=== PATIENT | female | born 1970 | race Caucasian/White ===

== ENCOUNTER 2016-07-27 21:13 | Inpatient (IN) | payer OTHER ==
[~2016-07-27] VITALS: Ht 165.1 cm; Wt 105.2 kg
[~2016-07-27 21:13] MED LIST: ALBUTEROL2.5 MG/0.5 INH; ANAPROX DS550 MG PO; ANTIVERT/2525 MG PO; AVELOX400 MG PO; BACTRIM DS 8001 TA1 PO; BRIN10TA PO; BUSPAR5 MG PO; CALCIUM CARBON500 M1 PO; CELEBREX200 MG; CELEXA40 MG; CELEXA40 MG PO; CEPHALEXIN500 M1 PO; CIPRO500 MG PO; CIPROFLOXACIN500 MG PO; CLARITIN10 MG PO; CYCLOBENZAPRINE10 MG PO; CYMBALTA60 MG PO; DONNATAL1 TAB PO; DOXYCYCLINE100 M3 PO; FETZIMA PO; FLAGYL500 MG; FLAGYL500 MG PO; FLEXERIL5 MG PO; FLONASE 0.05% 121 EA NAS; Flagyl500 M1 PO; GABAPENTIN TAB600 MG PO; HYDROCODONE BIT1 T11 PO; HYDROXYZINE50 MG PO; KLONOPIN2 MG PO; LEVAQUIN500 M2 PO; LEVAQUIN750 M1 PO; LEVAQUIN750 MG PO; LEVOMILNACIPRAN PO; LOMOTIL 0.025 M1 TA1 PO; Lioresal PO; MEDROL DOSEPAK4 MG PO; MOTRIN800 MG PO; NORCO 5-325 TA1 EACH PO; OMNICEF300 MG PO; Orphenadrine C100 MG PO; PEPCID20 MG PO; PERCOCET 325 MG1 TA2 PO; PHARMASSURE FO0.4 MG PO; PHENAZOPYRIDIN100 M1 PO; PHENERGAN W/ DE30 ML PO; PREDNICOT10 MG PO; PREDNISONE10 MG PO; PRISTIQ50 MG PO; PROAIR HFA0.09 MG/AC INH; PROTONIX40 MG PO; Phenergan25 MG PO; RISPERDAL0.25 MG PO; ROBITUSSIN AC 110 ML PO; ROBITUSSIN DM 105 ML PO; SEROQUEL300 MG PO; SOMA350 MG PO; TRAMADOL HCL50 MG PO; TYLENOL WITH CO1 TA1 PO; VALIUM10 MG; VENTOLIN H0.09 MG/AC INH; VICODIN 5/500 505 MG PO; VICODIN ES 7501 TA1 PO; VISTARIL25 M2 PO; VOLTAREN50 M1 PO; XANAX XR2 MG; XANAX0.5 MG PO; ZITHROMAX Z PA250 MG PO; ZITHROMAX250 MG PO; ZITHROMAX500 MG PO; ZOFRAN ODT4 MG SL; ZOFRAN ODT8 MG PO; ZOFRAN4 MG PO; ZYRTEC10 MG PO; Zofran4 MG PO; [UNRECOGNIZED DRUG - OTHER] PO; [UNRECOGNIZED DRUG - OTHER] PO
[2016-07-27 21:24] VITALS: BP 118/61
[2016-07-27 22:00] LABS: BASO # 0.1 10*3/uL (0.0-0.1); BASO % 0.3 % (0.0-1.0); EOS # 0.3 10*3/uL (0.0-0.4); HEMATOCRIT 44.7 % (37.0-47.0); HEMOGLOBIN 15.2 g/dl (12.0-16.0); IG # 0.1 10*3/uL (0.0-0.1); LYMPH # 4.2 10*3/uL (1.3-4.4); LYMPH % 25.3 % (27.0-41.0); MEAN CELL VOLUME 86.6 fl (81.0-99.0); MEAN CORPUSCULAR HGB 29.5 pg (27.0-31.0); MEAN PLATELET VOLUME 9.6 fl (9.6-12.3); MONO # 1.1 10*3/uL (0.1-1.0); MONO % 6.4 % (3.0-9.0); NEUT # 10.9 10*3/uL (2.3-7.9); NEUT % 65.6 % (47.0-73.0); PLATELET COUNT AUTOMATED 342 10*3/uL (130-400); RED BLOOD COUNT 5.16 10*6/uL (4.10-5.10); RED CELL DISTRI WIDTH 14.6 % (0-14.5); WHITE BLOOD COUNT 16.7 10*3/uL (4.8-10.8)
[2016-07-27 22:10] LABS: PROTHROMBIN TIME 10.2 SECONDS (9.0-12.4)
[2016-07-27 22:17] LABS: C-REACTIVE PROTEIN 1.4 MG/DL (0-0.3); CKMB 1.1 ng/ml (0.5-3.6); MAGNESIUM 2.4 mg/dL (1.5-2.1)
[2016-07-27 22:18] LABS: ALBUMIN 3.3 gm/dl (3.1-4.5); ALKALINE PHOSPHATASE 129 U/L (45-117); BILIRUBIN, TOTAL 0.2 mg/dl (0.2-1.0); BUN 14 mg/dl (7-24); CARBON DIOXIDE 26 mmol/L (21-32); CHLORIDE 103 mmol/L (98-107); EST GLOM FILT AFRICAN AMERICAN > 60 ml/min; GLUCOSE 100 mg/dL (65-99); SGOT/AST 18 IU/L (3-35); SGPT/ALT 25 U/L (12-78); SODIUM 139 mmol/L (136-145); TOTAL PROTEIN 7.5 gm/dL (6.4-8.2)
[2016-07-28 02:30] VITALS: BP 110/60
[2016-07-28 06:43] LABS: BASO % 0.3 % (0.0-1.0); EOS % 0.1 % (1.0-4.0); HEMOGLOBIN 14.2 g/dl (12.0-16.0); IG # 0.1 10*3/uL (0.0-0.1); LYMPH # 1.3 10*3/uL (1.3-4.4); LYMPH % 10.7 % (27.0-41.0); MEAN CELL VOLUME 87.8 fl (81.0-99.0); MEAN PLATELET VOLUME 9.7 fl (9.6-12.3); MONO # 0.2 10*3/uL (0.1-1.0); MONO % 1.3 % (3.0-9.0); NEUT # 10.4 10*3/uL (2.3-7.9); NEUT % 86.7 % (47.0-73.0); PLATELET COUNT AUTOMATED 320 10*3/uL (130-400); RED CELL DISTRI WIDTH 14.6 % (0-14.5)
[2016-07-28 06:47] LABS: CKMB 1.1 ng/ml (0.5-3.6)
[2016-07-28 06:57] LABS: BILIRUBIN NEGATIVE (NEGATIVE); BLOOD NEGATIVE (NEGATIVE); CLARITY CLEAR (CLEAR); COLOR YELLOW (YELLOW); GLUCOSE NEGATIVE (NEGATIVE); KETONE NEGATIVE (NEGATIVE); LEUKO ESTERASE NEGATIVE (NEGATIVE); NITRITE NEGATIVE (NEGATIVE); PROTEIN NEGATIVE (NEGATIVE); UROBILINOGEN 0.2 E.U./dl (0.2-1.0)
[2016-07-28 07:00] LABS: HEMOGLOBIN A1c 5.7 % (4.8-5.6)
[2016-07-28 07:02] LABS: MAGNESIUM 2.3 mg/dL (1.5-2.1)
[2016-07-28 07:03] LABS: ALBUMIN 3.1 gm/dl (3.1-4.5); ALKALINE PHOSPHATASE 116 U/L (45-117); BILIRUBIN, TOTAL 0.2 mg/dl (0.2-1.0); BUN 13 mg/dl (7-24); CARBON DIOXIDE 22 mmol/L (21-32); CHLORIDE 105 mmol/L (98-107); EST GLOM FILT AFRICAN AMERICAN > 60 ml/min; GLUCOSE 205 mg/dL (65-99); POTASSIUM 3.7 mmol/L (3.5-5.1); SGOT/AST 14 IU/L (3-35); SGPT/ALT 21 U/L (12-78); SODIUM 140 mmol/L (136-145); TOTAL PROTEIN 7.1 gm/dL (6.4-8.2)
[2016-07-28 07:13] LABS: BACTERIA TRACE; MUCOUS TRACE; URINE REFLEX COMMENT NO (NO); WBC 0-2 wbc/hpf (0-5)
[2016-07-28 12:00] VITALS: BP 100/59
[2016-07-28 12:36] LABS: CKMB 1.3 ng/ml (0.5-3.6)
[2016-07-28 16:00] VITALS: BP 119/64
[2016-07-29 15:05] LABS: FOLIC ACID 3.13 ng/mL (>5.38)
== END 2016-07-28 16:15 | disposition left against medical advice (07) | DRG 871 ==
LOC: ED 21:13 → 5E 07-28 00:18 → EDHOLD 07-28 00:18 → 5E 07-28 00:39
PROVIDERS: Emergency Medicine; Internal Medicine
DX: A41.9 Sepsis, unspecified organism (principal); J18.9 Pneumonia, unspecified organism; E44.0 Moderate protein-calorie malnutrition; K31.84 Gastroparesis; F31.9 Bipolar disorder, unspecified; J45.909 Unspecified asthma, uncomplicated; M79.7 Fibromyalgia; K57.90 Diverticulosis of intestine, part unspecified, without perforation or abscess without bleeding; M06.9 Rheumatoid arthritis, unspecified; M54.9 Dorsalgia, unspecified; Z79.899 Other long term (current) drug therapy; Z82.49 Family history of ischemic heart disease and other diseases of the circulatory system; Z81.8 Family history of other mental and behavioral disorders; Z88.1 Allergy status to other antibiotic agents; Z88.6 Allergy status to analgesic agent; Z88.8 Allergy status to other drugs, medicaments and biological substances; Z68.38 Body mass index [BMI] 38.0-38.9, adult

== ENCOUNTER → 2016-08-13 | Outpatient (CLI) | payer OTHER ==
[~2016-08-13] MED LIST changes: +PHENERGAN25 M3 PO
[2016-08-13 16:15] LABS: BASO % 0.2 % (0.0-1.0); EOS # 0.2 10*3/uL (0.0-0.4); EOS % 1.6 % (1.0-4.0); HEMATOCRIT 47.3 % (37.0-47.0); HEMOGLOBIN 15.5 g/dl (12.0-16.0); LYMPH # 4.1 10*3/uL (1.3-4.4); LYMPH % 33.7 % (27.0-41.0); MEAN CELL VOLUME 88.6 fl (81.0-99.0); MEAN CORPUSCULAR HGB CONC 32.8 g/dl (33.0-37.0); MEAN PLATELET VOLUME 9.8 fl (9.6-12.3); MONO # 0.8 10*3/uL (0.1-1.0); MONO % 6.6 % (3.0-9.0); NEUT # 6.9 10*3/uL (2.3-7.9); NEUT % 57.6 % (47.0-73.0); PLATELET COUNT AUTOMATED 415 10*3/uL (130-400); RED BLOOD COUNT 5.34 10*6/uL (4.10-5.10); RED CELL DISTRI WIDTH 14.6 % (0-14.5)
[2016-08-13 16:37] LABS: ALBUMIN 3.9 gm/dl (3.1-4.5); ALKALINE PHOSPHATASE 121 U/L (45-117); BILIRUBIN, TOTAL 0.2 mg/dl (0.2-1.0); BUN 13 mg/dl (7-24); CARBON DIOXIDE 27 mmol/L (21-32); CHLORIDE 105 mmol/L (98-107); EST GLOM FILT AFRICAN AMERICAN > 60 ml/min; GLUCOSE 81 mg/dL (65-99); POTASSIUM 4.2 mmol/L (3.5-5.1); SGOT/AST 15 IU/L (3-35); SGPT/ALT 24 U/L (12-78); SODIUM 141 mmol/L (136-145); TOTAL PROTEIN 8.3 gm/dL (6.4-8.2)
[2016-08-14 22:06] LABS: HEPATITIS C QUANTITATION HCV Not Detected IU/mL (.)
== END | disposition home or self-care (01) ==
LOC: LAB 15:12
PROVIDERS: Nurse Practitioner Family
DX: B19.20 Unspecified viral hepatitis C without hepatic coma (principal)

== ENCOUNTER → 2016-10-12 | Outpatient (CLI) | payer OTHER | END | disposition home or self-care (01) | LOC: RAD 12:35 | DX: M25.551 Pain in right hip (principal) ==

== ENCOUNTER 2016-10-13 08:12 | Emergency (ER) | payer OTHER ==
[~2016-10-13] VITALS: Wt 106.1 kg
[~2016-10-13 08:12] MED LIST changes: -PHENERGAN25 M3 PO
[2016-10-13 09:04] LABS: BASO % 0.3 % (0.0-1.0); EOS # 0.1 10*3/uL (0.0-0.4); EOS % 1.2 % (1.0-4.0); HEMATOCRIT 43.2 % (37.0-47.0); HEMOGLOBIN 14.5 g/dl (12.0-16.0); LYMPH # 3.3 10*3/uL (1.3-4.4); LYMPH % 31.5 % (27.0-41.0); MEAN CELL VOLUME 85.9 fl (81.0-99.0); MEAN CORPUSCULAR HGB 28.8 pg (27.0-31.0); MEAN CORPUSCULAR HGB CONC 33.6 g/dl (33.0-37.0); MEAN PLATELET VOLUME 9.4 fl (9.6-12.3); MONO # 0.7 10*3/uL (0.1-1.0); MONO % 6.5 % (3.0-9.0); NEUT # 6.3 10*3/uL (2.3-7.9); NEUT % 60.2 % (47.0-73.0); PLATELET COUNT AUTOMATED 333 10*3/uL (130-400); RED BLOOD COUNT 5.03 10*6/uL (4.10-5.10); WHITE BLOOD COUNT 10.5 10*3/uL (4.8-10.8)
[2016-10-13 09:12] LABS: PROTHROMBIN TIME 10.7 SECONDS (9.0-12.4)
[2016-10-13 09:19] LABS: ALBUMIN 3.5 gm/dl (3.1-4.5); BILIRUBIN, TOTAL 0.2 mg/dl (0.2-1.0); BUN 15 mg/dl (7-24); C-REACTIVE PROTEIN 1.43 MG/DL (0-0.3); CARBON DIOXIDE 25 mmol/L (21-32); CHLORIDE 106 mmol/L (98-107); EST GLOM FILT AFRICAN AMERICAN > 60 ml/min; GLUCOSE 98 mg/dL (65-99); MAGNESIUM 2.5 mg/dL (1.5-2.1); POTASSIUM 4.5 mmol/L (3.5-5.1); SGOT/AST 19 IU/L (3-35); SGPT/ALT 29 U/L (12-78); SODIUM 142 mmol/L (136-145); TOTAL PROTEIN 7.6 gm/dL (6.4-8.2)
[2016-10-13 09:20] LABS: ALKALINE PHOSPHATASE 121 U/L (45-117); CKMB 1.1 ng/ml (0.5-3.6); CPK 104 U/L (26-192)
[2016-10-13 09:22] LABS: TROPONIN I < 0.015 ng/ml (<0.045)
[2016-10-13] MEDS ORDERED: PHENERGAN25 M3 PO (12:06)
== END 2016-10-13 12:24 | disposition home or self-care (01) ==
LOC: ED 08:12
PROVIDERS: Emergency Medicine
DX: K52.9 Noninfective gastroenteritis and colitis, unspecified (principal); F17.200 Nicotine dependence, unspecified, uncomplicated; J45.909 Unspecified asthma, uncomplicated; F31.9 Bipolar disorder, unspecified; M79.7 Fibromyalgia; M06.9 Rheumatoid arthritis, unspecified; Z90.49 Acquired absence of other specified parts of digestive tract; Z90.710 Acquired absence of both cervix and uterus; Z98.51 Tubal ligation status; Z79.899 Other long term (current) drug therapy; Z88.1 Allergy status to other antibiotic agents; Z88.6 Allergy status to analgesic agent

== ENCOUNTER 2016-11-10 18:45 | Emergency (ER) | payer OTHER ==
[~2016-11-10] VITALS: Wt 107.0 kg
[~2016-11-10 18:45] MED LIST changes: +PHENERGAN25 M3 PO
[2016-11-10 18:54] VITALS: BP 160/69
== END 2016-11-10 21:19 | disposition home or self-care (01) ==
LOC: ED 18:45
DX: M79.641 Pain in right hand (principal); F17.200 Nicotine dependence, unspecified, uncomplicated; Z90.49 Acquired absence of other specified parts of digestive tract; Z88.1 Allergy status to other antibiotic agents; Z88.6 Allergy status to analgesic agent

== ENCOUNTER 2016-11-16 20:08 | Emergency (ER) | payer OTHER ==
[~2016-11-16] VITALS: Ht 134.6 cm; Wt 106.6 kg
[2016-11-16 20:11] VITALS: BP 138/67
== END 2016-11-16 21:06 | disposition home or self-care (01) ==
LOC: ED 20:08
DX: M79.604 Pain in right leg (principal); F17.200 Nicotine dependence, unspecified, uncomplicated; Z88.1 Allergy status to other antibiotic agents; Z88.6 Allergy status to analgesic agent; Z90.49 Acquired absence of other specified parts of digestive tract; Z79.899 Other long term (current) drug therapy

== ENCOUNTER → 2016-12-10 | Outpatient (CLI) | payer OTHER | END | disposition home or self-care (01) | LOC: CT 11-13 14:00 | DX: R91.1 Solitary pulmonary nodule (principal); E04.2 Nontoxic multinodular goiter; M47.894 Other spondylosis, thoracic region; M25.78 Osteophyte, vertebrae; Z87.891 Personal history of nicotine dependence; Z90.49 Acquired absence of other specified parts of digestive tract ==

== ENCOUNTER 2016-12-15 21:38 | Inpatient (IN) | payer OTHER ==
[~2016-12-15] VITALS: Ht 162.6 cm; Wt 108.0 kg
[2016-12-15 21:59] VITALS: BP 125/92
[2016-12-15 22:23] LABS: BILIRUBIN NEGATIVE (NEGATIVE); BLOOD NEGATIVE (NEGATIVE); CLARITY CLEAR (CLEAR); COLOR YELLOW (YELLOW); GLUCOSE NEGATIVE (NEGATIVE); KETONE NEGATIVE (NEGATIVE); LEUKO ESTERASE NEGATIVE (NEGATIVE); NITRITE NEGATIVE (NEGATIVE); PH 5.5 (5.0-9.0); PROTEIN NEGATIVE (NEGATIVE); SPECIFIC GRAVITY <= 1.005 (1.005-1.030); UROBILINOGEN 0.2 E.U./dl (0.2-1.0)
[2016-12-15 22:31] LABS: EPITHELIAL CELLS 0-2; URINE REFLEX COMMENT NO (NO)
[2016-12-15] MEDS ORDERED: KLONOPIN2 M1 PO (22:44)
[2016-12-15] MEDS ORDERED: DIPHENOXYLATE/A1 TA1 PO (22:44)
[2016-12-15] MEDS ORDERED: CELECOXIB200 M1 PO (22:45)
[2016-12-15] MEDS ORDERED: PREDNISONE10 MG PO (22:45)
[2016-12-15 23:51] LABS: ALKALINE PHOSPHATASE 155 U/L (45-117); BILIRUBIN, TOTAL 0.5 mg/dl (0.2-1.0); BUN 15 mg/dl (7-24); C-REACTIVE PROTEIN 1.67 MG/DL (0-0.3); CARBON DIOXIDE 19 mmol/L (21-32); CHLORIDE 108 mmol/L (98-107); EST GLOM FILT AFRICAN AMERICAN > 60 ml/min; GLUCOSE 89 mg/dL (65-99); POTASSIUM 4.7 mmol/L (3.5-5.1); SGOT/AST 61 IU/L (3-35); SGPT/ALT 42 U/L (12-78); SODIUM 138 mmol/L (136-145); TOTAL PROTEIN 9.3 gm/dL (6.4-8.2)
[2016-12-15 23:53] LABS: TROPONIN I < 0.015 ng/ml (<0.045)
[2016-12-16 00:10] LABS: BASO % 0.3 % (0.0-1.0); EOS # 0.1 10*3/uL (0.0-0.4); EOS % 0.9 % (1.0-4.0); HEMATOCRIT 43.8 % (37.0-47.0); HEMOGLOBIN 14.7 g/dl (12.0-16.0); IG # 0.1 10*3/uL (0.0-0.1); LYMPH # 3.7 10*3/uL (1.3-4.4); LYMPH % 24.9 % (27.0-41.0); MEAN CELL VOLUME 85.2 fl (81.0-99.0); MEAN CORPUSCULAR HGB 28.6 pg (27.0-31.0); MEAN CORPUSCULAR HGB CONC 33.6 g/dl (33.0-37.0); MEAN PLATELET VOLUME 9.9 fl (9.6-12.3); MONO # 1.3 10*3/uL (0.1-1.0); MONO % 8.6 % (3.0-9.0); NEUT # 9.7 10*3/uL (2.3-7.9); NEUT % 64.8 % (47.0-73.0); PLATELET COUNT AUTOMATED 302 10*3/uL (130-400); RED BLOOD COUNT 5.14 10*6/uL (4.10-5.10); RED CELL DISTRI WIDTH 15.4 % (0-14.5)
[2016-12-16 01:31] LABS: LA>2 REFLEX 2 HR DRAW NOW
[2016-12-16 02:32] VITALS: BP 112/73
[2016-12-16 03:15] VITALS: BP 106/69
[2016-12-16 06:47] LABS: BASO % 0.4 % (0.0-1.0); EOS # 0.1 10*3/uL (0.0-0.4); EOS % 1.3 % (1.0-4.0); HEMATOCRIT 43.4 % (37.0-47.0); HEMOGLOBIN 14.4 g/dl (12.0-16.0); LYMPH # 3.7 10*3/uL (1.3-4.4); LYMPH % 32.8 % (27.0-41.0); MEAN CELL VOLUME 86.5 fl (81.0-99.0); MEAN CORPUSCULAR HGB 28.7 pg (27.0-31.0); MEAN CORPUSCULAR HGB CONC 33.2 g/dl (33.0-37.0); MEAN PLATELET VOLUME 9.7 fl (9.6-12.3); MONO % 8.8 % (3.0-9.0); NEUT # 6.3 10*3/uL (2.3-7.9); NEUT % 56.3 % (47.0-73.0); PLATELET COUNT AUTOMATED 293 10*3/uL (130-400); RED BLOOD COUNT 5.02 10*6/uL (4.10-5.10); RED CELL DISTRI WIDTH 15.7 % (0-14.5); WHITE BLOOD COUNT 11.2 10*3/uL (4.8-10.8)
[2016-12-16 07:02] LABS: CKMB 0.8 ng/ml (0.5-3.6); CPK 88 U/L (26-192)
[2016-12-16 07:04] LABS: TROPONIN I < 0.015 ng/ml (<0.045)
[2016-12-16 07:14] LABS: ALBUMIN 3.1 gm/dl (3.1-4.5); ALKALINE PHOSPHATASE 118 U/L (45-117); BILIRUBIN, TOTAL 0.3 mg/dl (0.2-1.0); BUN 12 mg/dl (7-24); CARBON DIOXIDE 18 mmol/L (21-32); CHLORIDE 115 mmol/L (98-107); EST GLOM FILT AFRICAN AMERICAN > 60 ml/min; GLUCOSE 98 mg/dL (65-99); POTASSIUM 4.4 mmol/L (3.5-5.1); SGOT/AST 26 IU/L (3-35); SGPT/ALT 30 U/L (12-78); SODIUM 143 mmol/L (136-145)
[2016-12-16 07:18] LABS: PROTHROMBIN TIME 10.4 SECONDS (9.0-12.4)
[2016-12-16 07:33] LABS: CHOLESTEROL 190 mg/dL (<200); HDL CHOLESTEROL 29 mg/dl (40-60); LDL CHOLESTEROL 101 mg/dL (9-159); MAGNESIUM 2.3 mg/dL (1.5-2.1); PHOSPHOROUS 4.1 mg/dL (2.5-4.9); TRIGLYCERIDES 299 mg/dl (<150); VLDL CHOLESTEROL 60 mg/dL (6-40)
[2016-12-16 08:00] VITALS: BP 96/66
[2016-12-16 08:45] LABS: HEMOGLOBIN A1c 5.8 % (4.8-5.6)
[2016-12-16 09:55] LABS: FOLIC ACID 10.55 ng/mL (>5.38); VITAMIN D, 25-HYDROXY 28.8 ng/mL (30-100)
[2016-12-16 12:03] VITALS: BP 88/58
[2016-12-16 12:21] LABS: CKMB 0.8 ng/ml (0.5-3.6); CPK 98 U/L (26-192); TROPONIN I < 0.015 ng/ml (<0.045)
[2016-12-16] MEDS ORDERED: SIMVASTATIN40 MG PO (12:46)
[2016-12-16] MEDS ORDERED: D-1000 185 MG-11 TAB PO (12:46)
== END 2016-12-16 13:50 | disposition home or self-care (01) | DRG 872 ==
LOC: ED 21:38 → EDHOLD 12-16 02:18 → 4E 12-16 02:18
PROVIDERS: Emergency Medicine Emergency Medical Services; Hospitalist
DX: A41.9 Sepsis, unspecified organism (principal); E87.8 Other disorders of electrolyte and fluid balance, not elsewhere classified; Z68.41 Body mass index [BMI] 40.0-44.9, adult; E66.01 Morbid (severe) obesity due to excess calories; K31.84 Gastroparesis; M06.9 Rheumatoid arthritis, unspecified; J45.30 Mild persistent asthma, uncomplicated; K57.90 Diverticulosis of intestine, part unspecified, without perforation or abscess without bleeding; F31.9 Bipolar disorder, unspecified; F17.210 Nicotine dependence, cigarettes, uncomplicated; F41.1 Generalized anxiety disorder; M79.7 Fibromyalgia; Z90.49 Acquired absence of other specified parts of digestive tract; Z90.710 Acquired absence of both cervix and uterus; Z98.51 Tubal ligation status; Z82.5 Family history of asthma and other chronic lower respiratory diseases; Z84.89 Family history of other specified conditions; Z88.1 Allergy status to other antibiotic agents; Z88.8 Allergy status to other drugs, medicaments and biological substances; Z79.899 Other long term (current) drug therapy; Z88.6 Allergy status to analgesic agent; Z82.49 Family history of ischemic heart disease and other diseases of the circulatory system

== ENCOUNTER → 2016-12-23 | Outpatient (CLI) | payer OTHER ==
[~2016-12-23] MED LIST changes: +CELECOXIB200 M1 PO; +D-1000 185 MG-11 TAB PO; +DIPHENOXYLATE/A1 TA1 PO; +KLONOPIN2 M1 PO; +SIMVASTATIN40 MG PO
[2016-12-24 08:13] LABS: RHEUMATOID ARTHRITIS FACTOR 10.1 IU/mL (0.0-13.9)
[2016-12-24 10:05] LABS: IMMUNOGLOBULIN IgE 002170 106 IU/mL (0-100)
[2016-12-24 16:10] LABS: ANGIOTENSIN-CONVERTING ENZYME 48 U/L (14-82)
[2016-12-25 00:08] LABS: IGG SUBCLASS 1 563 mg/dL (248-810); IGG SUBCLASS 2 260 mg/dL (130-555); IGG SUBCLASS 3 124 mg/dL (15-102); IGG SUBCLASS 4 37 mg/dL (2-96)
== END | disposition home or self-care (01) ==
LOC: LAB 09:42 → US 17:00
PROVIDERS: Internal Medicine Critical Care Medicine
DX: J84.9 Interstitial pulmonary disease, unspecified (principal); E04.1 Nontoxic single thyroid nodule

== ENCOUNTER 2017-01-12 14:13 | Emergency (ER) | payer OTHER ==
[~2017-01-12] VITALS: Ht 162.5 cm; Wt 107.5 kg
[2017-01-12] MEDS ORDERED: LEVOTHYROXIN0.025 M1 PO (14:33)
[2017-01-12] MEDS ORDERED: MIRTAZAPINE15 M2 PO (14:33)
[2017-01-12] MEDS ORDERED: PROAIR HFA8.5 GM INH (14:34)
[2017-01-12 15:20] LABS: BASO % 0.2 % (0.0-1.0); EOS # 0.2 10*3/uL (0.0-0.4); HEMATOCRIT 45.3 % (37.0-47.0); HEMOGLOBIN 15.4 g/dl (12.0-16.0); IG # 0.1 10*3/uL (0.0-0.1); LYMPH % 24.7 % (27.0-41.0); MEAN CELL VOLUME 85.5 fl (81.0-99.0); MEAN CORPUSCULAR HGB 29.1 pg (27.0-31.0); MEAN PLATELET VOLUME 9.6 fl (9.6-12.3); MONO # 1.3 10*3/uL (0.1-1.0); NEUT # 10.5 10*3/uL (2.3-7.9); NEUT % 65.7 % (47.0-73.0); PLATELET COUNT AUTOMATED 381 10*3/uL (130-400); RED CELL DISTRI WIDTH 15.3 % (0-14.5)
[2017-01-12 15:41] LABS: ALBUMIN 3.7 gm/dl (3.1-4.5); ALKALINE PHOSPHATASE 125 U/L (45-117); BUN 11 mg/dl (7-24); CARBON DIOXIDE 26 mmol/L (21-32); CHLORIDE 104 mmol/L (98-107); EST GLOM FILT AFRICAN AMERICAN > 60 ml/min; GLUCOSE 101 mg/dL (65-99); SGOT/AST 15 IU/L (3-35); SGPT/ALT 27 U/L (12-78); SODIUM 142 mmol/L (136-145); TOTAL PROTEIN 8.4 gm/dL (6.4-8.2); URIC ACID 4.1 mg/dL (2.6-6.0)
[2017-01-12 15:44] LABS: BILIRUBIN, TOTAL 0.2 mg/dl (0.2-1.0)
[2017-01-12 16:38] VITALS: BP 138/81
== END 2017-01-12 17:21 | disposition home or self-care (01) ==
LOC: ED 14:13
PROVIDERS: Nurse Practitioner Family
DX: M79.671 Pain in right foot (principal); M79.672 Pain in left foot; K62.89 Other specified diseases of anus and rectum; J45.909 Unspecified asthma, uncomplicated; F17.200 Nicotine dependence, unspecified, uncomplicated; Z88.6 Allergy status to analgesic agent; Z88.1 Allergy status to other antibiotic agents; Z79.899 Other long term (current) drug therapy

== ENCOUNTER → 2017-02-04 | Outpatient (CLI) | payer OTHER ==
[~2017-02-04] MED LIST changes: +LEVOTHYROXIN0.025 M1 PO; +MIRTAZAPINE15 M2 PO; +PROAIR HFA8.5 GM INH
== END | disposition home or self-care (01) ==
LOC: EDSTATUS 11:00 → SDC 11:00
PROVIDERS: Internal Medicine
DX: E04.2 Nontoxic multinodular goiter (principal); M06.9 Rheumatoid arthritis, unspecified

== ENCOUNTER → 2017-02-09 | Outpatient (CLI) | payer OTHER ==
[2017-02-09 12:17] LABS: FREE T4 0.91 ng/dl (0.76-1.46)
[2017-02-09 12:18] LABS: THYROID STIM HORMONE (HS) 1.49 uIU/ml (0.358-4.75)
== END | disposition home or self-care (01) ==
LOC: LAB 11:03
PROVIDERS: Internal Medicine
DX: E04.1 Nontoxic single thyroid nodule (principal); E03.9 Hypothyroidism, unspecified

== ENCOUNTER 2017-02-16 20:19 | Emergency (ER) | payer OTHER ==
[~2017-02-16] VITALS: Ht 162.5 cm; Wt 108.0 kg
[2017-02-16 20:48] VITALS: BP 136/83
[2017-02-16] MEDS ORDERED: ZANAFLEX CAPSULE4 MG PO (20:50)
== END 2017-02-16 22:27 | disposition home or self-care (01) ==
LOC: ED 20:19
DX: G89.29 Other chronic pain (principal); M54.5 Low back pain; M79.604 Pain in right leg; M79.605 Pain in left leg; M06.9 Rheumatoid arthritis, unspecified; J45.909 Unspecified asthma, uncomplicated; F17.200 Nicotine dependence, unspecified, uncomplicated; Z88.1 Allergy status to other antibiotic agents; Z88.6 Allergy status to analgesic agent; Z79.899 Other long term (current) drug therapy

== ENCOUNTER 2017-03-22 16:07 | Emergency (ER) | payer OTHER ==
[~2017-03-22] VITALS: Wt 102.1 kg
[~2017-03-22 16:07] MED LIST changes: +ZANAFLEX CAPSULE4 MG PO
[2017-03-22 16:09] VITALS: BP 132/81
[2017-03-22 17:01] LABS: BASO % 0.2 % (0.0-1.0); EOS # 0.1 10*3/uL (0.0-0.4); HEMATOCRIT 45.3 % (37.0-47.0); HEMOGLOBIN 15.1 g/dl (12.0-16.0); LYMPH # 3.8 10*3/uL (1.3-4.4); LYMPH % 25.9 % (27.0-41.0); MEAN CELL VOLUME 84.7 fl (81.0-99.0); MEAN CORPUSCULAR HGB 28.2 pg (27.0-31.0); MEAN CORPUSCULAR HGB CONC 33.3 g/dl (33.0-37.0); MEAN PLATELET VOLUME 9.7 fl (9.6-12.3); MONO # 1.1 10*3/uL (0.1-1.0); MONO % 7.2 % (3.0-9.0); NEUT # 9.4 10*3/uL (2.3-7.9); NEUT % 65.1 % (47.0-73.0); PLATELET COUNT AUTOMATED 331 10*3/uL (130-400); RED BLOOD COUNT 5.35 10*6/uL (4.10-5.10); RED CELL DISTRI WIDTH 15.2 % (0-14.5); WHITE BLOOD COUNT 14.5 10*3/uL (4.8-10.8)
[2017-03-22 17:12] LABS: BUN 10 mg/dl (7-24); CHLORIDE 107 mmol/L (98-107); CREATININE 0.93 mg/dL (0.55-1.02); POTASSIUM 3.6 mmol/L (3.5-5.1); SODIUM 140 mmol/L (136-145)
[2017-03-22] MEDS ORDERED: CEPHALEXIN500 M1 PO (18:34)
[2017-03-22] MEDS ORDERED: CLARITIN10 MG PO (18:34)
== END 2017-03-22 18:49 | disposition home or self-care (01) ==
LOC: ED 16:07
PROVIDERS: Emergency Medicine
DX: L29.8 Other pruritus (principal); T37.8X5A Adverse effect of other specified systemic anti-infectives and antiparasitics, initial encounter; J45.909 Unspecified asthma, uncomplicated; M06.9 Rheumatoid arthritis, unspecified; F17.200 Nicotine dependence, unspecified, uncomplicated; Z88.1 Allergy status to other antibiotic agents; Z88.6 Allergy status to analgesic agent; Z79.899 Other long term (current) drug therapy; Y92.9 Unspecified place or not applicable

== ENCOUNTER → 2017-05-12 | Outpatient (CLI) | payer OTHER ==
[~2017-05-12] MED LIST changes: +AUGMENTIN 875875 MG PO
== END | disposition home or self-care (01) ==
LOC: CT 10:57
DX: R91.8 Other nonspecific abnormal finding of lung field (principal); F17.200 Nicotine dependence, unspecified, uncomplicated

== ENCOUNTER 2017-05-13 12:38 | Emergency (ER) | payer OTHER ==
[~2017-05-13] VITALS: Ht 162.5 cm; Wt 107.0 kg
[~2017-05-13 12:38] MED LIST changes: -AUGMENTIN 875875 MG PO
[2017-05-13 12:47] VITALS: BP 117/74
[2017-05-13 13:40] LABS: BASO % 0.3 % (0.0-1.0); EOS # 0.1 10*3/uL (0.0-0.4); EOS % 0.8 % (1.0-4.0); HEMOGLOBIN 15.1 g/dl (12.0-16.0); LYMPH # 3.6 10*3/uL (1.3-4.4); LYMPH % 24.5 % (27.0-41.0); MEAN CELL VOLUME 85.8 fl (81.0-99.0); MEAN CORPUSCULAR HGB 28.2 pg (27.0-31.0); MEAN CORPUSCULAR HGB CONC 32.8 g/dl (33.0-37.0); MEAN PLATELET VOLUME 9.6 fl (9.6-12.3); MONO # 1.1 10*3/uL (0.1-1.0); MONO % 7.3 % (3.0-9.0); NEUT # 9.8 10*3/uL (2.3-7.9); NEUT % 66.5 % (47.0-73.0); PLATELET COUNT AUTOMATED 344 10*3/uL (130-400); RED BLOOD COUNT 5.36 10*6/uL (4.10-5.10); RED CELL DISTRI WIDTH 15.9 % (0-14.5); WHITE BLOOD COUNT 14.7 10*3/uL (4.8-10.8)
[2017-05-13 13:51] LABS: BUN 12 mg/dl (7-24); CHLORIDE 108 mmol/L (98-107); CREATININE 0.86 mg/dL (0.55-1.02); POTASSIUM 4.2 mmol/L (3.5-5.1); SODIUM 138 mmol/L (136-145)
[2017-05-13] MEDS ORDERED: AUGMENTIN 875875 MG PO (15:57)
== END 2017-05-13 16:04 | disposition home or self-care (01) ==
LOC: ED 12:38
PROVIDERS: Emergency Medicine
DX: L08.9 Local infection of the skin and subcutaneous tissue, unspecified (principal); F17.200 Nicotine dependence, unspecified, uncomplicated; Z90.49 Acquired absence of other specified parts of digestive tract; Z90.710 Acquired absence of both cervix and uterus; Z88.1 Allergy status to other antibiotic agents; Z88.8 Allergy status to other drugs, medicaments and biological substances

== ENCOUNTER → 2017-05-26 | Outpatient (CLI) | payer OTHER ==
[~2017-05-26] MED LIST changes: +AUGMENTIN 875875 MG PO
[2017-05-26 12:21] LABS: ABG BASE EXCESS -1.8 mmol/L (-2.0-2.0); ABG HCO3 21.8 mmol/l (22-26); ABG O2 SATURATION 87.7 % (95-97); ARTERIAL BLOOD GAS PCO2 35.6 mmHg (35-45); ARTERIAL BLOOD GAS PH 7.404 (7.35-7.45); ARTERIAL BLOOD GAS PO2 48.3 mmHg (80-90)
== END ==
LOC: LAB 11:30
PROVIDERS: Internal Medicine Critical Care Medicine
DX: J96.10 Chronic respiratory failure, unspecified whether with hypoxia or hypercapnia (principal)

== ENCOUNTER 2017-06-19 14:43 | Inpatient (IN) | payer OTHER ==
[~2017-06-19] VITALS: Ht 162.5 cm; Wt 111.2 kg
--- NOTE | ~2017-06-19 | EKG ---
[place], [place] ELECTROCARDIOGRAM REPORT NAME: BETHEL JOHNSON UNIT #: [id number] ROOM: 421 DOCTOR: JOSE ROBERTO ALDANA MD BIRTHDATE: [birth year] DOS: 06/19/2017 TIME: 1816 hours. 1. Normal sinus rhythm at 76 beats per minute. 2. The tracing is with a single PVC. 3. The tracing is normal. 4. When compared with the ECG done at 1459 hours of the same day, no significant change has become apparent. JOSE ROBERTO ALDANA MD CM:EKGRPT:ELECTROCARDIOGRAM REPORT 1203 1320 JOSE ROBERTO ALDANA MD
--- NOTE | ~2017-06-19 | EKG ---
[place], [place] ELECTROCARDIOGRAM REPORT NAME: BETHEL JOHNSON UNIT #: [id number] ROOM: 421 DOCTOR: JOSE ROBERTO ALDANA MD BIRTHDATE: [birth year] DOS: 06/19/2017 TIME: 2115 hours. 1. Normal sinus rhythm at 76 beats per minute. 2. The tracing is normal. 3. No significant change from an ECG done earlier in the day. JOSE ROBERTO ALDANA MD CM:EKGRPT:ELECTROCARDIOGRAM REPORT 1203 1321 JOSE ROBERTO ALDANA MD
--- NOTE | ~2017-06-19 | EKG ---
[place], [place] ELECTROCARDIOGRAM REPORT NAME: BETHEL JOHNSON UNIT #: [id number] ROOM: 421 DOCTOR: JOSE ROBERTO ALDANA MD BIRTHDATE: [birth year] DOS: 06/19/2017 TIME: 1459 hours. 1. Normal rhythm at 89 beats per minute. 2. The tracing is normal. 3. No previous tracing is available for comparison. JOSE ROBERTO ALDANA MD CM:EKGRPT:ELECTROCARDIOGRAM REPORT 1203 1317 JOSE ROBERTO ALDANA MD
[2017-06-19 14:56] VITALS: BP 138/72
[2017-06-19 15:26] LABS: BASO % 0.3 % (0.0-1.0); EOS # 0.1 10*3/uL (0.0-0.4); EOS % 0.9 % (1.0-4.0); HEMATOCRIT 47.3 % (37.0-47.0); HEMOGLOBIN 15.6 g/dl (12.0-16.0); LYMPH # 3.1 10*3/uL (1.3-4.4); MEAN CELL VOLUME 85.5 fl (81.0-99.0); MEAN CORPUSCULAR HGB 28.2 pg (27.0-31.0); MEAN PLATELET VOLUME 9.6 fl (9.6-12.3); MONO # 0.9 10*3/uL (0.1-1.0); MONO % 7.1 % (3.0-9.0); NEUT # 8.6 10*3/uL (2.3-7.9); NEUT % 67.2 % (47.0-73.0); PLATELET COUNT AUTOMATED 338 10*3/uL (130-400); RED BLOOD COUNT 5.53 10*6/uL (4.10-5.10); RED CELL DISTRI WIDTH 15.7 % (0-14.5); WHITE BLOOD COUNT 12.8 10*3/uL (4.8-10.8)
[2017-06-19 15:35] LABS: ACT PARTIAL THROMBO TIME 28.7 SECONDS (20.8-31.5)
[2017-06-19 15:42] LABS: ALBUMIN 3.4 gm/dl (3.1-4.5); ALKALINE PHOSPHATASE 152 U/L (45-117); BUN 9 mg/dl (7-24); CHLORIDE 104 mmol/L (98-107); CREATININE 0.93 mg/dL (0.55-1.02); POTASSIUM 5.2 mmol/L (3.5-5.1); SGOT/AST 36 IU/L (3-35); SGPT/ALT 30 U/L (12-78); SODIUM 141 mmol/L (136-145); TOTAL PROTEIN 7.9 gm/dL (6.4-8.2)
[2017-06-19 15:43] LABS: TROPONIN I < 0.015 ng/ml (<0.045)
--- NOTE | 2017-06-19 17:15 | NUR ---
PATIENT RESTING COMFORTABLY NO NEEDS EXPRESSED
[2017-06-19] MEDS ORDERED: PROPRANOLOL HCL20 M1 PO (17:23)
[2017-06-19] MEDS ORDERED: TRAZODONE50 MG PO (17:24)
[2017-06-19 17:30] VITALS: BP 120/74
--- NOTE | 2017-06-19 17:30 | NUR ---
A 46, admitted to , under the services of KATARINA Burrell DO with a diagnosis of CHEST PAIN. Chief complaint is SOB AND CHEST PAIN. Patient arrived via ambulatory from ER. Monitor applied. Initial assessment completed. Vital signs taken and recorded. KATARINA BURRELL DO notified of admission to the unit. Orders received. See assessment for past medical history, medications and allergies. Patient and/or family oriented to unit. [facility]. Clothing/patient valuable form completed. LISANDRO FUNG
[2017-06-19 17:34] VITALS: BP 120/79
[2017-06-19] MEDS ORDERED: Percocet 325 MG1 TAB PO (17:47)
--- NOTE | 2017-06-19 18:02 | NUR ---
PT HAS BEEN VACCINATED.
--- NOTE | 2017-06-19 18:12 | NUR ---
MED RECONCILIATION COMPLETED VIA PREFERRED PHARMACY AND WITH PT ALSO AT BEDSIDE. DR JOYNER NOTIFIED.
--- NOTE | 2017-06-19 18:18 | NUR ---
NOTIFIED DR HUA OF NEW CONSULT FOR CHEST PAIN. PT IS A DR ALDANA PT WITH NEW APPT Jun. DR HUA IS COVERING FOR DR ALDANA. IF DR ALDANA DOES NOT SEE PT TOMORROW DR HUA WILL SEE PT ON WEDNESDAY.
[2017-06-19 20:06] VITALS: BP 110/61
--- NOTE | 2017-06-19 20:18 | NUR ---
PT SITTING UP IN BED, ALERT ORIENTED AND RESTLESS. STATING THAT THE MEDICATION THAT SHE WAS GIVEN LAST WAS NOT EFFECTIVE. PT C/O LOWER BACK PAIN AND INSOMNIA. NORCO AND RESTORIL ADMINISTERED PO AT THIS TIME. WILL MONITOR FOR EFFECTIVENESS. ASSESSMENT COMPLETE, LUNGS DIMINISHED, HEART RATE REGULAR, ACTIVE BSX4. IV SITE PATENT, DRESSING DRY AND IN TACT. ENCOURAGED USE OF CALL LIGHT FOR QUESTIONS AND NEEDS.
--- NOTE | 2017-06-19 21:18 | NUR ---
NORCO EFFECTIVE PER PT FOR PAIN. RESTORIL INEFFECTIVE FOR SLEEP. PT REQUESTS PHYSICIAN TO BE CALLED REGARDING HOME MEDICATION THAT ARE NOT SHOWING UP ON EMAR. WILL CALL PHYSICIAN AND ADDRESS THE REQUESTED MEDICATIONS.
--- NOTE | 2017-06-19 22:10 | NUR ---
PHYSICIAN NOTIFIED OF PT REQUESTS FOR MEDICATION. PHYSICIAN STATES HE WILL PUT MEDICATIONS AT THIS TIME.
--- NOTE | 2017-06-19 22:30 | NUR ---
MEDICATIONS GIVEN TO PT THAT PHYSICIAN PUT IN, PT STATES THAT THERE ARE OTHER MEDICATIONS THAT SHE SHOULD BE GIVEN. DR. VILLAVICENCIO NOTIFIED AGAIN OF REQUESTED MEDICATIONS AND GIVES THE OKAY TO GIVE PT KLONOPIN, TRAZODONE, AND GABAPENTIN TONIGHT.
[2017-06-20] VITALS: BP 100/62
--- NOTE | 2017-06-20 05:43 | NUR ---
PT C/O PAIN. NORCO ADMINSITERED PO. WILL MONITOR FOR EFFECTIVENESS.
[2017-06-20 06:23] LABS: BASO % 0.4 % (0.0-1.0); EOS # 0.3 10*3/uL (0.0-0.4); EOS % 2.4 % (1.0-4.0); HEMATOCRIT 48.7 % (37.0-47.0); HEMOGLOBIN 16.3 g/dl (12.0-16.0); LYMPH # 4.1 10*3/uL (1.3-4.4); LYMPH % 39.7 % (27.0-41.0); MEAN CELL VOLUME 86.3 fl (81.0-99.0); MEAN CORPUSCULAR HGB 28.9 pg (27.0-31.0); MEAN CORPUSCULAR HGB CONC 33.5 g/dl (33.0-37.0); MEAN PLATELET VOLUME 9.7 fl (9.6-12.3); MONO # 0.9 10*3/uL (0.1-1.0); MONO % 8.3 % (3.0-9.0); NEUT % 48.8 % (47.0-73.0); PLATELET COUNT AUTOMATED 365 10*3/uL (130-400); RED BLOOD COUNT 5.64 10*6/uL (4.10-5.10); RED CELL DISTRI WIDTH 15.8 % (0-14.5); WHITE BLOOD COUNT 10.3 10*3/uL (4.8-10.8)
[2017-06-20 06:31] LABS: ALBUMIN 3.4 gm/dl (3.1-4.5); BUN 10 mg/dl (7-24); CHLORIDE 107 mmol/L (98-107); CHOLESTEROL 153 mg/dL (<200); CREATININE 0.77 mg/dL (0.55-1.02); SGOT/AST 27 IU/L (3-35); SGPT/ALT 34 U/L (12-78); TRIGLYCERIDES 265 mg/dl (<150); VLDL CHOLESTEROL 53 mg/dL (6-40)
[2017-06-20 06:37] LABS: ALKALINE PHOSPHATASE 147 U/L (45-117); FREE T4 0.95 ng/dl (0.76-1.46); HDL CHOLESTEROL 30 mg/dl (40-60); LDL CHOLESTEROL 70 mg/dL (9-159)
[2017-06-20 06:40] LABS: SODIUM 139 mmol/L (136-145)
[2017-06-20 06:42] LABS: POTASSIUM 4.1 mmol/L (3.5-5.1)
--- NOTE | 2017-06-20 06:43 | NUR ---
NIXON EFFECTIVE PER PT.
--- NOTE | 2017-06-20 06:48 | NUR ---
PT C/O NAUSEA. ZOFRAN ADMINISTERED AT THIS TIME. WILL MONITOR FOR EFFECTIVENES.
--- NOTE | 2017-06-20 07:35 | NUR ---
ZOFRAN EFFECTIVE PER PT. PT RESTING IN BED AT THIS TIME.
[2017-06-20 07:43] LABS: VITAMIN D, 25-HYDROXY 21.8 ng/mL (30-100)
[2017-06-20 07:57] VITALS: BP 115/77
--- NOTE | 2017-06-20 07:58 | NUR ---
PT LEAVING AMA AT THIS TIME. IV REMOVED AND PRESSURE DRESSING APPLIED. HEART MONITOR RETURNED TO FLOOR.
[2017-06-21] MEDS ORDERED: Meclizine25 MG PO (11:26)
== END 2017-06-20 07:58 | disposition left against medical advice (07) | DRG 313 ==
LOC: ED 14:43 → 4E 17:04
PROVIDERS: Emergency Medicine; Student in an Organized Health Care Education/Training Program; ADMIT Internal Medicine
DX: R07.9 Chest pain, unspecified (principal); R65.10 Systemic inflammatory response syndrome (SIRS) of non-infectious origin without acute organ dysfunction; D75.1 Secondary polycythemia; E66.01 Morbid (severe) obesity due to excess calories; F31.9 Bipolar disorder, unspecified; F41.1 Generalized anxiety disorder; I10 Essential (primary) hypertension; M06.9 Rheumatoid arthritis, unspecified; R06.82 Tachypnea, not elsewhere classified; D72.829 Elevated white blood cell count, unspecified; E78.5 Hyperlipidemia, unspecified; E55.9 Vitamin D deficiency, unspecified; J45.909 Unspecified asthma, uncomplicated; F17.210 Nicotine dependence, cigarettes, uncomplicated; Z90.49 Acquired absence of other specified parts of digestive tract; Z68.30 Body mass index [BMI] 30.0-30.9, adult; Z90.710 Acquired absence of both cervix and uterus; Z98.51 Tubal ligation status; Z88.1 Allergy status to other antibiotic agents; Z88.8 Allergy status to other drugs, medicaments and biological substances; Z82.5 Family history of asthma and other chronic lower respiratory diseases; Z83.3 Family history of diabetes mellitus; Z81.8 Family history of other mental and behavioral disorders; Z53.21 Procedure and treatment not carried out due to patient leaving prior to being seen by health care provider

== ENCOUNTER 2017-06-21 10:58 | Emergency (ER) | payer OTHER ==
[~2017-06-21] VITALS: Ht 162.5 cm; Wt 111.1 kg
[~2017-06-21 10:58] MED LIST changes: +PROPRANOLOL HCL20 M1 PO; +Percocet 325 MG1 TAB PO; +TRAZODONE50 MG PO
[2017-06-21 11:06] VITALS: BP 131/73
[2017-06-21] MEDS ORDERED: Meclizine25 MG PO (11:26)
== END 2017-06-21 12:11 | disposition home or self-care (01) ==
LOC: ED 10:58
DX: R07.89 Other chest pain (principal); R42 Dizziness and giddiness; J45.909 Unspecified asthma, uncomplicated; G89.29 Other chronic pain; M79.7 Fibromyalgia; F41.1 Generalized anxiety disorder; E78.5 Hyperlipidemia, unspecified; E83.41 Hypermagnesemia; M06.9 Rheumatoid arthritis, unspecified; F17.200 Nicotine dependence, unspecified, uncomplicated; Z88.1 Allergy status to other antibiotic agents; Z88.8 Allergy status to other drugs, medicaments and biological substances; Z79.899 Other long term (current) drug therapy; Z90.49 Acquired absence of other specified parts of digestive tract; Z90.710 Acquired absence of both cervix and uterus; Z98.51 Tubal ligation status

== ENCOUNTER 2017-08-12 08:47 | Emergency (ER) | payer OTHER ==
[~2017-08-12] VITALS: Ht 162.5 cm; Wt 112.0 kg
[~2017-08-12 08:47] MED LIST changes: +Meclizine25 MG PO
[2017-08-12 08:56] VITALS: BP 133/82
[2017-08-12] MEDS ORDERED: DIFLUCAN150 MG PO (09:13)
[2017-08-12] MEDS ORDERED: FLOXIN10 ML OT (09:13)
[2017-08-12] MEDS ORDERED: AMOXICILLIN500 M2 PO (09:13)
== END 2017-08-12 09:25 | disposition home or self-care (01) ==
LOC: ED 08:47
DX: J01.90 Acute sinusitis, unspecified (principal); H92.02 Otalgia, left ear; H57.12 Ocular pain, left eye; J45.909 Unspecified asthma, uncomplicated; E78.5 Hyperlipidemia, unspecified; M06.9 Rheumatoid arthritis, unspecified; F17.200 Nicotine dependence, unspecified, uncomplicated; Z88.1 Allergy status to other antibiotic agents; Z88.6 Allergy status to analgesic agent; Z79.899 Other long term (current) drug therapy

== ENCOUNTER 2017-10-10 11:40 | Emergency (ER) | payer OTHER ==
[~2017-10-10] VITALS: Ht 162.5 cm; Wt 113.4 kg
[~2017-10-10 11:40] MED LIST changes: +AMOXICILLIN500 M2 PO; +DIFLUCAN150 MG PO; +FLOXIN10 ML OT
[2017-10-10 11:46] VITALS: BP 129/82
[2017-10-10 12:41] LABS: BASO # 0.1 10*3/uL (0.0-0.1); BASO % 0.5 % (0.0-1.0); EOS # 0.1 10*3/uL (0.0-0.4); HEMATOCRIT 50.3 % (37.0-47.0); HEMOGLOBIN 16.6 g/dl (12.0-16.0); LYMPH # 3.2 10*3/uL (1.3-4.4); LYMPH % 24.5 % (27.0-41.0); MEAN CELL VOLUME 85.4 fl (81.0-99.0); MEAN CORPUSCULAR HGB 28.2 pg (27.0-31.0); MEAN PLATELET VOLUME 9.5 fl (9.6-12.3); MONO # 0.9 10*3/uL (0.1-1.0); MONO % 6.7 % (3.0-9.0); NEUT # 8.8 10*3/uL (2.3-7.9); NEUT % 66.7 % (47.0-73.0); PLATELET COUNT AUTOMATED 386 10*3/uL (130-400); RED BLOOD COUNT 5.89 10*6/uL (4.10-5.10); RED CELL DISTRI WIDTH 16.2 % (0-14.5); WHITE BLOOD COUNT 13.2 10*3/uL (4.8-10.8)
[2017-10-10 12:55] LABS: BILIRUBIN NEGATIVE (NEGATIVE); BLOOD TRACE-INTACT (NEGATIVE); CLARITY SL CLOUDY (CLEAR); COLOR YELLOW (YELLOW); GLUCOSE NEGATIVE (NEGATIVE); KETONE NEGATIVE (NEGATIVE); LEUKO ESTERASE TRACE (NEGATIVE); NITRITE NEGATIVE (NEGATIVE); SPECIFIC GRAVITY >= 1.030 (1.005-1.030); UROBILINOGEN 0.2 E.U./dl (0.2-1.0)
[2017-10-10 12:59] LABS: ALBUMIN 3.5 gm/dl (3.1-4.5); ALKALINE PHOSPHATASE 132 U/L (45-117); BUN 11 mg/dl (7-24); CHLORIDE 105 mmol/L (98-107); CREATININE 0.91 mg/dL (0.55-1.02); LIPASE 195 U/L (73-393); POTASSIUM 4.1 mmol/L (3.5-5.1); SGOT/AST 17 IU/L (3-35); SGPT/ALT 30 U/L (12-78); SODIUM 135 mmol/L (136-145); TOTAL PROTEIN 8.2 gm/dL (6.4-8.2)
[2017-10-10 13:02] LABS: BACTERIA 1+; MUCOUS 1+
[2017-10-10] MEDS ORDERED: DIFLUCAN150 MG PO (16:04)
[2017-10-10] MEDS ORDERED: FLAGYL500 MG PO (16:04)
== END 2017-10-10 16:12 | disposition home or self-care (01) ==
LOC: ED 11:40
PROVIDERS: Physician Assistant
DX: B37.3 Candidiasis of vulva and vagina (principal); Z90.710 Acquired absence of both cervix and uterus; Z90.49 Acquired absence of other specified parts of digestive tract; Z88.1 Allergy status to other antibiotic agents; Z88.5 Allergy status to narcotic agent; Z88.6 Allergy status to analgesic agent

== ENCOUNTER → 2017-10-13 | Outpatient (CLI) | payer OTHER ==
[~2017-10-13] MED LIST changes: +Zofran4 MG SL
== END | disposition home or self-care (01) ==
LOC: D 10:24
DX: E66.01 Morbid (severe) obesity due to excess calories (principal)

== ENCOUNTER 2017-10-14 08:36 | Emergency (ER) | payer OTHER ==
[~2017-10-14] VITALS: Wt 72.6 kg
[~2017-10-14 08:36] MED LIST changes: -Zofran4 MG SL
[2017-10-14 08:45] VITALS: BP 129/75
[2017-10-14 09:31] LABS: BILIRUBIN NEGATIVE (NEGATIVE); BLOOD NEGATIVE (NEGATIVE); CLARITY SL CLOUDY (CLEAR); COLOR YELLOW (YELLOW); GLUCOSE NEGATIVE (NEGATIVE); KETONE NEGATIVE (NEGATIVE); LEUKO ESTERASE 1+ (NEGATIVE); NITRITE NEGATIVE (NEGATIVE); PH 5.5 (5.0-9.0); SPECIFIC GRAVITY 1.015 (1.005-1.030); UROBILINOGEN 0.2 E.U./dl (0.2-1.0)
[2017-10-14 09:33] LABS: BASO # 0.1 10*3/uL (0.0-0.1); BASO % 0.4 % (0.0-1.0); EOS # 0.1 10*3/uL (0.0-0.4); EOS % 1.2 % (1.0-4.0); HEMATOCRIT 48.6 % (37.0-47.0); HEMOGLOBIN 16.4 g/dl (12.0-16.0); LYMPH # 2.9 10*3/uL (1.3-4.4); LYMPH % 23.5 % (27.0-41.0); MEAN CORPUSCULAR HGB 28.7 pg (27.0-31.0); MEAN CORPUSCULAR HGB CONC 33.7 g/dl (33.0-37.0); MEAN PLATELET VOLUME 9.5 fl (9.6-12.3); MONO % 8.2 % (3.0-9.0); PLATELET COUNT AUTOMATED 360 10*3/uL (130-400); RED BLOOD COUNT 5.72 10*6/uL (4.10-5.10); RED CELL DISTRI WIDTH 15.9 % (0-14.5); WHITE BLOOD COUNT 12.1 10*3/uL (4.8-10.8)
[2017-10-14 09:42] LABS: BACTERIA TRACE; EPITHELIAL CELLS 21-30; MUCOUS 3+
[2017-10-14 09:49] LABS: ALBUMIN 3.5 gm/dl (3.1-4.5); ALKALINE PHOSPHATASE 130 U/L (45-117); BUN 9 mg/dl (7-24); CHLORIDE 103 mmol/L (98-107); CREATININE 1.06 mg/dL (0.55-1.02); LIPASE 210 U/L (73-393); POTASSIUM 3.9 mmol/L (3.5-5.1); SGOT/AST 30 IU/L (3-35); SGPT/ALT 41 U/L (12-78); SODIUM 136 mmol/L (136-145); TOTAL PROTEIN 8.2 gm/dL (6.4-8.2)
[2017-10-14 09:50] LABS: TROPONIN I < 0.015 ng/ml (<0.045)
[2017-10-14] MEDS ORDERED: Zofran4 MG SL (10:29)
== END 2017-10-14 10:42 | disposition home or self-care (01) ==
LOC: ED 08:36
PROVIDERS: Student in an Organized Health Care Education/Training Program
DX: N39.0 Urinary tract infection, site not specified (principal); R19.7 Diarrhea, unspecified; E78.5 Hyperlipidemia, unspecified; M06.9 Rheumatoid arthritis, unspecified; E11.9 Type 2 diabetes mellitus without complications; Z88.1 Allergy status to other antibiotic agents; Z88.6 Allergy status to analgesic agent; Z79.899 Other long term (current) drug therapy; Z87.891 Personal history of nicotine dependence

== ENCOUNTER → 2017-10-26 | Outpatient (CLI) | payer OTHER ==
[~2017-10-26] MED LIST changes: +Zofran4 MG SL
== END | disposition home or self-care (01) ==
LOC: US 12:24
DX: R10.32 Left lower quadrant pain (principal); Z90.710 Acquired absence of both cervix and uterus

== ENCOUNTER → 2017-11-23 | Outpatient (CLI) | payer OTHER | END | disposition home or self-care (01) | LOC: RAD 16:34 | DX: J20.9 Acute bronchitis, unspecified (principal) ==

== ENCOUNTER 2017-11-29 05:47 | Emergency (ER) | payer OTHER ==
[~2017-11-29] VITALS: Ht 162.5 cm; Wt 111.1 kg
[2017-11-29 05:49] VITALS: BP 114/66
[2017-11-29 06:10] LABS: BILIRUBIN NEGATIVE (NEGATIVE); BLOOD 3+ (NEGATIVE); CLARITY CLOUDY (CLEAR); COLOR YELLOW (YELLOW); GLUCOSE NEGATIVE (NEGATIVE); KETONE NEGATIVE (NEGATIVE); LEUKO ESTERASE 2+ (NEGATIVE); NITRITE NEGATIVE (NEGATIVE); PH 5.5 (5.0-9.0); SPECIFIC GRAVITY 1.025 (1.005-1.030); UROBILINOGEN 0.2 E.U./dl (0.2-1.0)
[2017-11-29 06:20] LABS: BACTERIA 3+; EPITHELIAL CELLS 15-20; RBC TNTC rbc/hpf (0-2); WBC TNTC wbc/hpf (0-5)
[2017-11-29] MEDS ORDERED: SEPTDS PO (06:23)
[2017-11-29] MEDS ORDERED: PYRIDIUM100 MG PO (06:53)
== END 2017-11-29 06:43 | disposition home or self-care (01) ==
LOC: ED 05:47
PROVIDERS: Student in an Organized Health Care Education/Training Program
DX: N39.0 Urinary tract infection, site not specified (principal); R31.9 Hematuria, unspecified; J45.909 Unspecified asthma, uncomplicated; G89.29 Other chronic pain; M79.7 Fibromyalgia; E78.5 Hyperlipidemia, unspecified; E66.01 Morbid (severe) obesity due to excess calories; M06.9 Rheumatoid arthritis, unspecified; Z88.1 Allergy status to other antibiotic agents; Z90.49 Acquired absence of other specified parts of digestive tract; Z98.890 Other specified postprocedural states; Z90.710 Acquired absence of both cervix and uterus; Z98.51 Tubal ligation status; Z88.6 Allergy status to analgesic agent

== ENCOUNTER 2018-04-08 05:52 | Emergency (ER) | payer OTHER ==
[~2018-04-08] VITALS: Ht 162.5 cm; Wt 108.9 kg
[~2018-04-08 05:52] MED LIST changes: +PYRIDIUM100 MG PO; +SEPTDS PO
[2018-04-08 06:13] LABS: BILIRUBIN NEGATIVE (NEGATIVE); BLOOD NEGATIVE (NEGATIVE); CLARITY CLOUDY (CLEAR); COLOR YELLOW (YELLOW); GLUCOSE NEGATIVE (NEGATIVE); KETONE NEGATIVE (NEGATIVE); LEUKO ESTERASE TRACE (NEGATIVE); NITRITE NEGATIVE (NEGATIVE); PH 5.5 (5.0-9.0); UROBILINOGEN 0.2 E.U./dl (0.2-1.0)
[2018-04-08 06:25] LABS: BACTERIA 4+; EPITHELIAL CELLS 35-40
[2018-04-08 07:45] VITALS: BP 92/46
== END 2018-04-08 09:00 | disposition left against medical advice (07) ==
LOC: ED 05:52
PROVIDERS: Emergency Medicine
DX: M54.5 Low back pain (principal); J45.909 Unspecified asthma, uncomplicated; E78.5 Hyperlipidemia, unspecified; E66.01 Morbid (severe) obesity due to excess calories; Z88.1 Allergy status to other antibiotic agents; Z88.6 Allergy status to analgesic agent; Z87.891 Personal history of nicotine dependence

== ENCOUNTER 2018-08-16 21:01 | Inpatient (IN) | payer OTHER ==
[~2018-08-16] VITALS: Ht 162.5 cm; Wt 109.0 kg
--- NOTE | ~2018-08-16 | CON ---
[place], [place] REPORT OF CONSULTATION NAME: BETHEL JOHNSON UNIT #: [id number] ROOM: 517 DOCTOR: ADVID DALY MDRILEY BIRTHDATE: [birth year] DOS: 08/17/2018 PULMONARY CONSULTATION, EVALUATION AND MANAGEMENT REASON FOR CONSULTATION: Assess the patient pulmonary nodule and ongoing acute abnormal respiratory symptom. HISTORY OF PRESENT ILLNESS: This is a 48-year-old white female who is very well known to me from the past in the office. She has been noted with history of chronic nicotine dependence, COPD and bronchial asthma. The patient admitted to the hospital under care of hospitalist services, on 08/16/2018. The patient presented to the hospital as she has been explaining symptoms of increased shortness of breath occurring for the past few days. The symptoms were associated with a sore throat, dryness of the throat and a dry cough. Symptoms had been present for about a week and not resolving noted with gradual progression. She was also reported symptoms of chills. She does complain of symptoms of wheezing as well. There were no symptoms of chest pain reported symptoms of hemoptysis. The patient came into the emergency room for further assessment. She has been using excessive amount of shot acting bronchodilator in the form of nebulizer and MDI with nonresolution of the symptoms. REVIEW OF SYSTEMS: CONSTITUTIONAL: Fatigue and tiredness reported. Denies symptoms of fever or chills. EYES: Denies any burning, redness, or tenderness. EAR, NOSE, THROAT: No sore throat or hoarseness, otalgia at the present time. So at the present time. CARDIOVASCULAR: Denied any pain, edema, pain of the lower extremities. GASTROINTESTINAL: Denies dysphagia, nausea, vomiting, diarrhea, abdominal pain, hematemesis, melena, or hematochezia. SKIN: Denied no lesions or rashes. MUSCULOSKELETAL: No acute joint pain, redness, or tenderness. CENTRAL NERVOUS SYSTEM: No dizziness, headache, diplopia, syncopal episodes. Remaining systems were reviewed with the patient, they were noted all negative. PAST MEDICAL HISTORY: Known with history of 1. Bronchial asthma. 2. Essential hypertension. 3. Gastroesophageal reflux. 4. Daytime sleepiness with negative sleep study. 5. Chronic obesity. 6. Anxiety disorder. 8. Type 2 diabetes mellitus. SOCIAL HISTORY: The patient is , has 2 children, lives at home. Tobacco use noted at age of [age] years old, 2.5 pack of cigarettes per day with intermittent reduction of the tobacco use reported. Currently smoking a pack or more of cigarettes per day. Denies history of alcohol use or illicit drugs. [place], [place] REPORT OF CONSULTATION NAME: BETHEL JOHNSON UNIT #: [id number] ROOM: [facility] DOCTOR: RILEY FLANAGAN MD BIRTHDATE: [birth year] PAST SURGICAL HISTORY: Reported: 1. Appendectomy. 2. Oophorectomy. 3. Laparoscopic cholecystectomy. FAMILY HISTORY: The patient's father at age 60 due to complication of COPD. Mother at 72 years of complications of COPD as well. MEDICATIONS: The patient medications, which has been currently the patient were noted as use of Protonix, Cymbalta, Remeron, Mucinex, Solu-Medrol 40 mg b.i.d., Lovenox for DVT prophylaxis, DuoNeb, clonazepam, Wellbutrin, Rocephin and Zithromax. DRUG ALLERGIES: The patient noted as allergy: 1. Ibuprofen. 2. Cipro. 3. Toradol. 4. Levofloxacin. PHYSICAL EXAMINATION: GENERAL: A 48-year-old female, currently resting comfortably in the bed without any acute distress. Height of 5 feet 4 inches, weight of 240 pounds, BMI 41. VITAL SIGNS: Normal temperature, respiratory rate of 16-22, heart rate of 113-90 with mild sinus tachycardia, blood pressure 118/59 to 93/52. The pulse oxygen saturation of the patient was recorded as 92% saturation on 3 liters nasal cannula at rest. HEENT: Chronic obesity. Head was atraumatic. Eyes nonicterus. NECK: Supple. Severe decreased posterior pharyngeal space, high tongue base, crowding of soft tissue structures. CARDIOVASCULAR: S1, S2 is audible. LUNGS: The patient was noted with moderate decreased breath sounds with mild expiratory wheezing, no crackles. ABDOMEN: Soft and obese. EXTREMITIES: Chronic obesity. MUSCULOSKELETAL: Without acute deformities. SKIN: Visible skin lesions or rashes. CENTRAL NERVOUS SYSTEM: Cranial nerves 2-12 intact. LABORATORY DATA: Influenza A and B, nasal washing antigen yesterday were negative. Lactic acid 2.43, 0.1 later. The PT/INR was noted as normal. The CBC that was done on 08/16/2018 WBC count 15.6, hemoglobin 15.5, and platelet count were normal. CMP that was done this morning, BUN 10, creatinine was normal, remaining CMP was grossly normal. The chest x-ray of the patient noted haziness in the left lower lung, but there were no gross pulmonary infiltration. CT scan of the chest without contrast was reviewed that shows small patchy infiltration noted in the left lower lobe with atelectasis connecting to the left hemidiaphragm, small patchy infiltration noted in the inferior lingular subsegment, small infiltration versus fibrotic changes would be considered in the right middle lobe as well. A small nodule was noted in the right middle lobe, right upper lobe which has been measured as a size of 6 mm as well. [place], [place] REPORT OF CONSULTATION NAME: BETHEL JOHNSON UNIT #: [id number] ROOM: [facility] DOCTOR: RILEY FLANAGAN MD BIRTHDATE: [birth year] IMPRESSION: 1. The patient will be currently admitted to the hospital. The patient appeared to have bilateral small lobar pneumonia with consolidation and acute exacerbation of chronic obstructive pulmonary disease, central lobar emphysema changes on CT scan of the chest. 2. Incidental finding of the 6 mm nodule in the right upper lobe as well. 3. Chronic obesity. 4. Chronic heavy nicotine dependence. 5. Sedated sleepiness, negative sleep study for obstructive sleep apnea disorder further assessment. The patient was ordered, but the patient has not showed up or cancelled the sleep studies including the MSLT as well. PLAN OF TREATMENT: Nicotine replacement patches. Continue Solu-Medrol. Continue current antibiotic. The patient this time monitor respiratory status. Nodule assessment. Outpatient followup CT scan of the chest. The coughing was done about the tobacco cessation, need in the office and currently on today's assessment as well. Bronchodilator, collect the sputum for Gram stain and culture. Additional treatment changes will be ordered based on the progression of the illness. Workup for the pneumonia. The patient multilobar for the patient was started as well. Other supportive therapy, plan of management, care plan patient other treatment, which will be ordered. The patient was changed based on progression of the illness. Thanks for allowing me to participate in the care of this patient. RILYE HERNANDEZ MD CM:CONSTR:REPORT OF CONSULTATION 1322 08/17/18 1640 interface
--- NOTE | ~2018-08-16 | PR ---
[place], [place] PROGRESS NOTE NAME: BETHEL JOHNSON UNIT #: [id number] ROOM: 517 DOCTOR: RILEY FLANAGAN MD BIRTHDATE: [birth year] DOS: 08/18/2018 PULMONARY PROGRESS NOTE SUBJECTIVE: The patient has been noted comfortable at this time, reported reduction in respiratory symptoms of coughing and shortness of breath. Denies symptoms of chest pain, fever, or chills. Denies symptoms of nausea or vomiting. OBJECTIVE: VITAL SIGNS: Normal temperature, respiratory rate of 18, heart rate 62, blood pressure 122/62. Pulse oxygen saturation on 2 liters nasal cannula is 97% saturation. HEENT: Chronic obesity. NECK: Supple. CARDIOVASCULAR: S1 and S2 audible. LUNGS: Noted with [id number] decreased breath sounds. There are no wheezes or crackles on today's exam. ABDOMEN: Soft, nontender. Bowel sounds present. EXTREMITIES: Noted without any acute edema. Chronic obesity findings. LABORATORY DATA: CBC this morning was noted as WBC count elevated at 21.8. Hemoglobin, hematocrit and platelet count normal. CMP: Normal BUN and creatinine. Blood culture, no bacterial growth from 08/17/2018. IMPRESSION: 1. The patient with bilateral patchy pulmonary infiltration with acute pneumonia suspected, currently treated with antibiotics. 2. Chronic obesity. 3. Nicotine dependence. 4. Acute chronic obstructive pulmonary disease exacerbation as well. 5. Leukocytosis is noted, which could be induced by corticosteroids. 6. Pulmonary infiltration is noted, small at this time, would not be seen on chest x-ray. PLAN OF TREATMENT: The patient may be considered for discharge since the patient has been noted clinically stable at this time. Oral antibiotic, Levaquin upon discharge will be recommended. Tapering dose of prednisone. Counseling about tobacco cessation was again done. Outpatient followup to be established post-discharge. [place], [place] PROGRESS NOTE NAME: BETHEL JOHNSON UNIT #: [id number] ROOM: [facility] DOCTOR: RILEY FLANAGAN MD BIRTHDATE: [birth year] RILEY HERNANDEZ MD CM:PNTRANS 1107 1301 RILEY DALY MD 08/18/18 1302 interface
--- NOTE | ~2018-08-16 | EKG ---
[place], [place] ELECTROCARDIOGRAM REPORT NAME: BETHEL JOHNSON UNIT #: [id number] ROOM: 517 DOCTOR: DIAMOND DRAFT REPORT BIRTHDATE: [birth year] [facility] Test Date: 2018-08-16 Test Time: 21:28:11 Pat Name: BETHEL JOHNSON Department: Room: 517 Gender: F Billing Analyst: : 1970 Requested By: YUNIER MEDINA Order Number: [id number] Reading MD: Doyle Hollis MD Measurements Intervals Wren Rate: 110 P: 38 [place]: 181 QRS: -14 QRSD: 97 T: 26 QT: 314 QTc: 425 Interpretive Statements Sinus tachycardia Low voltage, precordial leads Probable left ventricular hypertrophy Electronically Signed On 08-18-2018 11:22:32 PST by Doyle Hollis MD CM:EKGRPT:ELECTROCARDIOGRAM REPORT 27 1122 YUNIER COLBY DRAFT REPORT YUNIER MEDINA DO
[2018-08-16 21:04] VITALS: BP 118/59
--- NOTE | 2018-08-16 21:49 | NUR ---
LACTIC ACID 2.4, DR MEDINA AWARE
[2018-08-16 21:58] LABS: TROPONIN I < 0.015 ng/ml (<0.045)
[2018-08-16 23:02] LABS: BASO % 0.1 % (0.0-1.0); EOS # 0.1 10*3/uL (0.0-0.4); EOS % 0.7 % (1.0-4.0); HEMATOCRIT 47.3 % (37.0-47.0); HEMOGLOBIN 15.5 g/dl (12.0-16.0); LYMPH % 12.9 % (27.0-41.0); MEAN CELL VOLUME 86.8 fl (81.0-99.0); MEAN CORPUSCULAR HGB 28.4 pg (27.0-31.0); MEAN CORPUSCULAR HGB CONC 32.8 g/dl (33.0-37.0); MEAN PLATELET VOLUME 9.5 fl (9.6-12.3); MONO # 0.8 10*3/uL (0.1-1.0); MONO % 5.3 % (3.0-9.0); NEUT # 12.6 10*3/uL (2.3-7.9); NEUT % 80.6 % (47.0-73.0); PLATELET COUNT AUTOMATED 300 10*3/uL (130-400); RED BLOOD COUNT 5.45 10*6/uL (4.10-5.10); RED CELL DISTRI WIDTH 15.5 % (0-14.5); WHITE BLOOD COUNT 15.6 10*3/uL (4.8-10.8)
[2018-08-16 23:17] LABS: ALBUMIN 3.6 gm/dl (3.1-4.5); ALKALINE PHOSPHATASE 144 U/L (45-117); BUN 10 mg/dl (7-24); CHLORIDE 105 mmol/L (98-107); CREATININE 1.11 mg/dL (0.55-1.02); POTASSIUM 3.6 mmol/L (3.5-5.1); SGOT/AST 23 IU/L (3-35); SGPT/ALT 43 U/L (12-78); SODIUM 138 mmol/L (136-145); TOTAL PROTEIN 8.1 gm/dL (6.4-8.2)
--- NOTE | 2018-08-16 23:58 | NUR ---
LACTIC ACID 2.7, DR MEDINA AWARE
[2018-08-17] VITALS (7 sets, daily range): BP systolic 93–131; BP diastolic 52–73
--- NOTE | 2018-08-17 01:14 | NUR ---
PT SITTING UPRIGHT IN BED PT GIVEN ADDITIONAL PILLOW FOR COMFORT FRIEND IS AT BEDSIDE PT REPORTS PAIN IS PARTIALY RELIEVED AFTER PAIN MEDICATION NO OTHER REQUEST AT THIS TIME BED IN LOWEST POSITION CALL CRUZ IN REACH
--- NOTE | 2018-08-17 02:15 | NUR ---
DR MEDINA NOTIFIED LACTIC ACID OF 3.1
--- NOTE | 2018-08-17 02:30 | NUR ---
A 48, admitted to , under the services of CARLIE Johnston DO with a diagnosis of BRONCHOSPASM. Chief complaint is SHORTNESS OF BREATH. Patient arrived via stretcher from ER. Monitor applied. Initial assessment completed. Vital signs taken and recorded. CARLIE JOHNSTON DO notified of admission to the unit. Orders received. See assessment for past medical history, medications and allergies. Patient and/or family oriented to unit. [facility]. Clothing/patient valuable form completed. KALPANA PACHECO
[2018-08-17] MEDS ORDERED: PERCOCET 7.5-31 EACH PO (02:39)
[2018-08-17] MEDS ORDERED: REXULTI1 MG PO (02:40)
[2018-08-17] MEDS ORDERED: REMERON30 M1 PO (02:41)
[2018-08-17] MEDS ORDERED: OMEPRAZOLE40 MG PO (02:43)
[2018-08-17] MEDS ORDERED: METFORMIN ER500 MG PO (02:45)
--- NOTE | 2018-08-17 03:06 | NUR ---
DR MORGAN CALLED AND MADE AWARE THAT HOME MED REQ IS UP TO DATE. PATIENT REQUESTING SOMETHING FOR PAIN MORE THAN TYLENOL. AWAITING FOR ORDERS.
--- NOTE | 2018-08-17 08:16 | NUR ---
PT INSTRUCTED ON FLUTTER. PT TOLERATED WELL. PT CAN DO ON HER OWN
--- NOTE | 2018-08-17 10:00 | NUR ---
Patient removes [place] oxygen even though she is aware that her SpO2 will drop to high 80's.
--- NOTE | 2018-08-17 11:47 | NUR ---
Shift chart check completed.
--- NOTE | 2018-08-17 16:12 | NUR ---
Urine specimen collected and sent.
--- NOTE | 2018-08-17 16:12 | NUR ---
Specimen for respiratory panel collected and sent.
--- NOTE | 2018-08-17 16:17 | NUR ---
Percocet given per patient request for c/o back pain related to pneumonia. Patient rates pain 8/10. Will monitor.
--- NOTE | 2018-08-17 17:00 | NUR ---
Percocet effective. Patient satisfied.
--- NOTE | 2018-08-17 17:42 | NUR ---
Ativan given per patient request for anxiety induced from "not being able to smoke." Will monitor.
--- NOTE | 2018-08-17 18:39 | NUR ---
Ativan effective. Patient satisfied and resting comfortabley.
--- NOTE | 2018-08-17 20:00 | NUR ---
RESTING IN BED WITH NO ACUTE DISTRESS NOTED. RESPIRATIONS EASY. LUNGS DIMINISHED WITH EXP WHEEZES. PULSE OX 95% 2L. DENIES COUGH, NONE NOTED. AWARE OF NEED FOR SPUTUM SPECIMEN, CUP PRESENT AT BEDSIDE. OFFERED AND EDUCATED REGARDING TEDS, DECLINED. IV FLUIDS INFUSING PER ORDER VIA SITE IN RIGHT [place], ASYMPTOMATIC. CALL LIGHT WITHIN REACH. NO VOICED COMPLAINTS
--- NOTE | 2018-08-17 20:28 | NUR ---
Shi24 HR chart check completed.
[2018-08-17] MEDS ORDERED: METHOCARBAMOL750 M1 PO (21:31)
--- NOTE | 2018-08-17 21:50 | NUR ---
REQUESTING HOME "MUSCLE RELAXER." MED REC REVIEWED WITH PATIENT AND UPDATED. DR MORGAN CONTACTED AND INFORMED OF ROBAXIN BEING ADDED TO MEDICATION LIST.
[2018-08-18] VITALS: BP 111/56
--- NOTE | 2018-08-18 00:30 | NUR ---
SLEEPING. NO DISTRESS NOTED. RESPIRATIONS EASY. VSS. IV FLUIDS MAINTAINED. CALL LIGHT WITHIN REACH.
--- NOTE | 2018-08-18 04:10 | NUR ---
REQUESTED AND RECEIVED PERCOCET PER PRN ORDER FOR COMPLAINTS OF BACK PAIN RATING A 9. CALL LIGHT WITHIN REACH. WILL MONITOR FOR EFFECTIVENESS
--- NOTE | 2018-08-18 05:00 | NUR ---
PERCOCET EFFECTIVE. SLEEPING. RESPIRATIONS EASY. IV FLUIDS MAINTAINED. CALL LIGHT WITHIN REACH
--- NOTE | 2018-08-18 06:45 | NUR ---
REQUESTED AND RECEIVED ATIVAN PER PRN ORDER TO ASSIST WITH ANXIETY. CALL LIGHT WITHIN REACH. WILL MONITOR FOR EFFECTIVENESS
[2018-08-18 07:17] LABS: BASO % 0.1 % (0.0-1.0); HEMATOCRIT 41.7 % (37.0-47.0); HEMOGLOBIN 13.7 g/dl (12.0-16.0); LYMPH % 13.6 % (27.0-41.0); MEAN CELL VOLUME 89.1 fl (81.0-99.0); MEAN CORPUSCULAR HGB 29.3 pg (27.0-31.0); MEAN CORPUSCULAR HGB CONC 32.9 g/dl (33.0-37.0); MONO # 1.4 10*3/uL (0.1-1.0); MONO % 6.3 % (3.0-9.0); NEUT # 17.3 10*3/uL (2.3-7.9); NEUT % 79.2 % (47.0-73.0); PLATELET COUNT AUTOMATED 300 10*3/uL (130-400); RED BLOOD COUNT 4.68 10*6/uL (4.10-5.10); RED CELL DISTRI WIDTH 15.9 % (0-14.5); WHITE BLOOD COUNT 21.8 10*3/uL (4.8-10.8)
[2018-08-18 07:44] LABS: ALBUMIN 2.8 gm/dl (3.1-4.5); ALKALINE PHOSPHATASE 106 U/L (45-117); BUN 9 mg/dl (7-24); CHLORIDE 120 mmol/L (98-107); CHOLESTEROL 192 mg/dL (<200); CREATININE 0.74 mg/dL (0.55-1.02); HDL CHOLESTEROL 25 mg/dl (40-60); LDL CHOLESTEROL 117 mg/dL (9-159); POTASSIUM 4.4 mmol/L (3.5-5.1); SGOT/AST 19 IU/L (3-35); SGPT/ALT 37 U/L (12-78); SODIUM 147 mmol/L (136-145); TOTAL PROTEIN 6.8 gm/dL (6.4-8.2); TRIGLYCERIDES 249 mg/dl (<150); VLDL CHOLESTEROL 50 mg/dL (6-40)
[2018-08-18 08:00] VITALS: BP 122/62
--- NOTE | 2018-08-18 08:30 | NUR ---
DR HERNANDEZ INTO SEE PATIENT. OK TO BE DISCHARGED FROM HIS STAND POINT. TO BE D/C'S WITH LEVAQUIN. DR IVERSON AWARE.
--- NOTE | 2018-08-18 10:07 | NUR ---
Shift chart check completed.
--- NOTE | 2018-08-18 10:15 | NUR ---
Day Trader in to talk to patient. Patient states lives at HOME with FAMILY. There are NO steps in the home. Physician: VASILE Pharmacy: [facility] Home health services: NONE Patient's level of ADLs: INDEPENDENT Patient has working utilities: YES DME: NONE Follow-up physician's appointment after d/c: WILL BE MADE BY HOSPITALIST NURSE DIRECTOR ON DISCHARGE Does patient want to access PORTAL?: NO Discharge plan PT LIVES AT HOME WITH HER FAMILY AND IS INDEPENDENT IN CARE. DENIES HOME NEEDS ON DISCHARGE. WILL CONTINUE TO FOLLOW.. DEMETRIO PACHECO
[2018-08-18] MEDS ORDERED: DOXYCYCLINE100 M3 PO (11:39)
[2018-08-18] MEDS ORDERED: MUCINEX1200 M1 PO (11:39)
[2018-08-18] MEDS ORDERED: PREDNISONE10 MG PO (11:39)
[2018-08-18 12:00] VITALS: BP 114/61
--- NOTE | 2018-08-18 13:40 | NUR ---
PATIENT IV DISCONTINUED AND GENERAL REPAIR MECHANIC DISCONTINUED FOR DISCHARGE.
--- NOTE | 2018-08-18 13:55 | NUR ---
Discharge instructions reviewed with patient/family. Patient receptive and verbalizes understanding. Follow-up care arranged. Written instructions given to patient/family. PATIENT DISCHARGED VIA WHEELCHAIR WITH . KALPANA PACHECO
[2018-08-19 07:07] LABS: ADENOVIRUS Negative (Negative); INFLUENZA A Negative (Negative); INFLUENZA B Negative (Negative); METAPNEUMOVIRUS Negative (Negative); PARAINFLUENZA 1 Negative (Negative); PARAINFLUENZA 2 Negative (Negative); PARAINFLUENZA 3 Negative (Negative); RHINOVIRUS Negative (Negative); RSV A Negative (Negative); RSV B Negative (Negative)
== END 2018-08-18 13:55 | disposition home or self-care (01) | DRG 871 ==
LOC: ED 21:01 → EDHOLD 08-17 01:48 → 5E 08-17 01:48
PROVIDERS: Emergency Medicine; Family Medicine; ADMIT Internal Medicine
DX: A41.9 Sepsis, unspecified organism (principal); N17.0 Acute kidney failure with tubular necrosis; J96.21 Acute and chronic respiratory failure with hypoxia; J18.1 Lobar pneumonia, unspecified organism; Z68.41 Body mass index [BMI] 40.0-44.9, adult; R65.20 Severe sepsis without septic shock; J98.01 Acute bronchospasm; R74.8 Abnormal levels of other serum enzymes; R73.9 Hyperglycemia, unspecified; R91.1 Solitary pulmonary nodule; K76.0 Fatty (change of) liver, not elsewhere classified; F17.210 Nicotine dependence, cigarettes, uncomplicated; F31.9 Bipolar disorder, unspecified; M06.9 Rheumatoid arthritis, unspecified; K31.84 Gastroparesis; J43.2 Centrilobular emphysema; M79.7 Fibromyalgia; F41.1 Generalized anxiety disorder; G89.4 Chronic pain syndrome; K57.90 Diverticulosis of intestine, part unspecified, without perforation or abscess without bleeding; E66.01 Morbid (severe) obesity due to excess calories; E78.5 Hyperlipidemia, unspecified; E55.9 Vitamin D deficiency, unspecified; R59.0 Localized enlarged lymph nodes; R42 Dizziness and giddiness; M54.40 Lumbago with sciatica, unspecified side; Z99.81 Dependence on supplemental oxygen; Z71.6 Tobacco abuse counseling; Z88.1 Allergy status to other antibiotic agents; Z88.6 Allergy status to analgesic agent; Z87.440 Personal history of urinary (tract) infections; Z90.49 Acquired absence of other specified parts of digestive tract; Z90.710 Acquired absence of both cervix and uterus; Z98.51 Tubal ligation status; Z82.49 Family history of ischemic heart disease and other diseases of the circulatory system; Z81.8 Family history of other mental and behavioral disorders; Z83.3 Family history of diabetes mellitus; Z84.89 Family history of other specified conditions; Z82.5 Family history of asthma and other chronic lower respiratory diseases; Z90.722 Acquired absence of ovaries, bilateral

== ENCOUNTER 2020-05-19 16:01 | Inpatient (IN) | payer OTHER ==
[2020-05-19 16:01] VITALS: BP 135/76
[~2020-05-19 16:01] MED LIST changes: +METFORMIN ER500 MG PO; +METHOCARBAMOL750 M1 PO; +MUCINEX1200 M1 PO; +OMEPRAZOLE40 MG PO; +PERCOCET 7.5-31 EACH PO; +REMERON30 M1 PO; +REXULTI1 MG PO
[2020-05-19 16:23] LABS: BASO % 0.3 % (0.0-1.0); EOS # 0.2 10*3/uL (0.0-0.4); EOS % 1.6 % (1.0-4.0); HEMATOCRIT 49.9 % (37.0-47.0); LYMPH # 4.6 10*3/uL (1.3-4.4); LYMPH % 35.9 % (27.0-41.0); MEAN CELL VOLUME 85.4 fl (81.0-99.0); MEAN CORPUSCULAR HGB 27.9 pg (27.0-31.0); MEAN CORPUSCULAR HGB CONC 32.7 g/dl (33.0-37.0); MEAN PLATELET VOLUME 9.1 fl (9.6-12.3); MONO # 0.8 10*3/uL (0.1-1.0); MONO % 6.4 % (3.0-9.0); NEUT # 7.1 10*3/uL (2.3-7.9); NEUT % 55.3 % (47.0-73.0); PLATELET COUNT AUTOMATED 432 10*3/uL (130-400); RED BLOOD COUNT 5.84 10*6/uL (4.10-5.10); RED CELL DISTRI WIDTH 14.6 % (0-14.5); WHITE BLOOD COUNT 12.8 10*3/uL (4.8-10.8)
[2020-05-19 16:35] LABS: ACT PARTIAL THROMBO TIME 33.4 SECONDS (20.0-32.1)
[2020-05-19 16:41] LABS: ALBUMIN 3.4 gm/dl (3.1-4.5); ALKALINE PHOSPHATASE 131 U/L (45-117); BUN 11 mg/dl (7-24); CHLORIDE 107 mmol/L (98-107); CREATININE 1.05 mg/dL (0.55-1.02); SGOT/AST 17 IU/L (3-35); SGPT/ALT 18 U/L (12-78); SODIUM 137 mmol/L (136-145); TOTAL PROTEIN 8.2 gm/dL (6.4-8.2)
[2020-05-19 16:45] LABS: TROPONIN I < 0.015 ng/ml (<0.045)
[2020-05-19 18:02] VITALS: BP 117/72
[2020-05-19 18:55] VITALS: BP 90/50
[2020-05-19 21:00] VITALS: BP 106/72
[2020-05-20] MEDS ORDERED: BUSPAR15 MG PO (01:04)
[2020-05-20] MEDS ORDERED: MIRTAZAPINE45 MG PO (01:08)
[2020-05-20] MEDS ORDERED: HYDROXYZINE PAM50 MG PO (01:09)
== END 2020-05-20 02:29 | disposition left against medical advice (07) | DRG 195 ==
LOC: ED 16:01 → EDHOLD 19:50
PROVIDERS: Emergency Medicine; ADMIT Student in an Organized Health Care Education/Training Program; ATTEND Student in an Organized Health Care Education/Training Program
DX: J18.9 Pneumonia, unspecified organism (principal); R09.02 Hypoxemia; Z88.1 Allergy status to other antibiotic agents; Z88.6 Allergy status to analgesic agent; Z90.49 Acquired absence of other specified parts of digestive tract; Z90.710 Acquired absence of both cervix and uterus; Z98.51 Tubal ligation status; Z82.5 Family history of asthma and other chronic lower respiratory diseases; Z82.49 Family history of ischemic heart disease and other diseases of the circulatory system

== ENCOUNTER 2023-02-03 23:03 | Emergency (ER) | payer BC ==
[~2023-02-03] VITALS: Ht 160 cm; Wt 111.1 kg
[~2023-02-03 23:03] MED LIST changes: +BUSPAR15 MG PO; +HYDROXYZINE PAM50 MG PO; +MIRTAZAPINE45 MG PO
[2023-02-04 01:05] LABS: BASO # 0.1 10*3/uL (0.0-0.1); BASO % 0.5 % (0.0-1.0); EOS # 0.2 10*3/uL (0.0-0.4); EOS % 1.4 % (1.0-4.0); HEMATOCRIT 42.8 % (37.0-47.0); LYMPH # 4.6 10*3/uL (1.3-4.4); MEAN CELL VOLUME 84.4 fl (81.0-99.0); MEAN CORPUSCULAR HGB 28.6 pg (27.0-31.0); MEAN CORPUSCULAR HGB CONC 33.9 g/dl (33.0-37.0); MEAN PLATELET VOLUME 9.1 fl (9.6-12.3); MONO % 6.9 % (3.0-9.0); NEUT % 57.8 % (47.0-73.0); PLATELET COUNT AUTOMATED 331 10*3/uL (130-400); RED BLOOD COUNT 5.07 10*6/uL (4.10-5.10); RED CELL DISTRI WIDTH 14.6 % (0-14.5); WHITE BLOOD COUNT 13.9 10*3/uL (4.8-10.8)
[2023-02-04 01:30] VITALS: BP 99/48
[2023-02-04 01:31] LABS: ALKALINE PHOSPHATASE 187 U/L (46-116); BUN 11 mg/dl (9-23); CHLORIDE 105 mmol/L (98-107); POTASSIUM 3.4 mmol/L (3.4-5.1); SGPT/ALT 28 U/L (10-49); TOTAL PROTEIN 7.5 gm/dL (6.0-8.0)
[2023-02-04] MEDS ORDERED: OMNICEF300 MG PO (05:06)
== END 2023-02-04 05:16 | disposition home or self-care (01) ==
LOC: ED 23:03
PROVIDERS: Emergency Medicine
DX: T81.31XA Disruption of external operation (surgical) wound, not elsewhere classified, initial encounter (principal); T81.41XA Infection following a procedure, superficial incisional surgical site, initial encounter; F32.A Depression, unspecified; M19.90 Unspecified osteoarthritis, unspecified site; F41.9 Anxiety disorder, unspecified; Z87.442 Personal history of urinary calculi; Z88.1 Allergy status to other antibiotic agents; Z88.6 Allergy status to analgesic agent; Z88.8 Allergy status to other drugs, medicaments and biological substances; Z90.49 Acquired absence of other specified parts of digestive tract; Z90.710 Acquired absence of both cervix and uterus; Z98.51 Tubal ligation status; F17.200 Nicotine dependence, unspecified, uncomplicated

== ENCOUNTER → 2023-06-10 | Outpatient (CLI) | payer BC ==
[2023-06-10 10:05] LABS: HEMATOCRIT 45.9 % (37.0-47.0); MEAN CELL VOLUME 83.3 fl (81.0-99.0); MEAN CORPUSCULAR HGB 27.8 pg (27.0-31.0); MEAN CORPUSCULAR HGB CONC 33.3 g/dl (33.0-37.0); RED BLOOD COUNT 5.51 10*6/uL (4.10-5.10); RED CELL DISTRI WIDTH 14.8 % (0-14.5); WHITE BLOOD COUNT 10.4 10*3/uL (4.8-10.8)
[2023-06-10 10:30] LABS: ALKALINE PHOSPHATASE 172 U/L (46-116); BUN 8 mg/dl (9-23); CHLORIDE 106 mmol/L (98-107); CHOLESTEROL 219 mg/dL (<200); CPK 75 U/L (34-171); POTASSIUM 3.4 mmol/L (3.4-5.1); SGPT/ALT 20 U/L (5-49); TOTAL PROTEIN 7.4 gm/dL (6.0-8.0); TRIGLYCERIDES 472 mg/dl (<150)
[2023-06-10 11:19] LABS: VITAMIN D, 25-HYDROXY 30.7 ng/mL (30-100)
== END | disposition home or self-care (01) ==
LOC: LAB 09:41
PROVIDERS: ATTEND Family Medicine
DX: E78.00 Pure hypercholesterolemia, unspecified (principal); E74.00 Glycogen storage disease, unspecified; E66.9 Obesity, unspecified; E55.9 Vitamin D deficiency, unspecified; E74.9 Disorder of carbohydrate metabolism, unspecified; F41.1 Generalized anxiety disorder; R53.83 Other fatigue

== ENCOUNTER → 2023-06-24 | Outpatient (CLI) | payer BC | END | disposition home or self-care (01) | LOC: MRI 09:00 | PROVIDERS: ATTEND Physician Assistant | DX: M51.34 Other intervertebral disc degeneration, thoracic region (principal) ==

== ENCOUNTER → 2023-09-06 | Outpatient (CLI) | payer OTHER ==
[2023-09-06 14:14] LABS: ALKALINE PHOSPHATASE 154 U/L (46-116); BUN 11 mg/dl (9-23); CHLORIDE 104 mmol/L (98-107); POTASSIUM 4.1 mmol/L (3.4-5.1); SGPT/ALT 29 U/L (5-49); TOTAL PROTEIN 7.9 gm/dL (6.0-8.0)
== END | disposition home or self-care (01) ==
LOC: LAB 13:28
PROVIDERS: ATTEND Family Medicine
DX: R07.81 Pleurodynia (principal); R25.2 Cramp and spasm; M79.7 Fibromyalgia; R07.9 Chest pain, unspecified

== ENCOUNTER 2023-11-05 13:32 | Emergency (ER) | payer OTHER ==
[~2023-11-05] VITALS: Ht 160 cm; Wt 113.4 kg
[2023-11-05 13:42] VITALS: BP 146/79
[2023-11-05 14:12] LABS: BASO # 0.1 10*3/uL (0.0-0.1); BASO % 0.5 % (0.0-1.0); EOS # 0.1 10*3/uL (0.0-0.4); EOS % 0.7 % (1.0-4.0); LYMPH % 29.9 % (27.0-41.0); MEAN CELL VOLUME 83.9 fl (81.0-99.0); MEAN CORPUSCULAR HGB 27.1 pg (27.0-31.0); MEAN CORPUSCULAR HGB CONC 32.3 g/dl (33.0-37.0); MONO # 0.8 10*3/uL (0.1-1.0); MONO % 7.4 % (3.0-9.0); NEUT # 6.2 10*3/uL (2.3-7.9); NEUT % 61.2 % (47.0-73.0); PLATELET COUNT AUTOMATED 326 10*3/uL (130-400); RED CELL DISTRI WIDTH 14.8 % (0-14.5); WHITE BLOOD COUNT 10.1 10*3/uL (4.8-10.8)
[2023-11-05 14:24] LABS: ACT PARTIAL THROMBO TIME 30.6 SECONDS (20.0-32.1)
[2023-11-05] MEDS ORDERED: Metoclopramide Hydrochloride 10 MG/2 ML AMP IV ONE (14:25)
[2023-11-05] MEDS ORDERED: ACETAMINOPHEN 325 MG TAB PO ONE (14:25)
[2023-11-05] MEDS ORDERED: Meclizine Hydrochloride 25 MG TAB PO ONE (14:25)
[2023-11-05] MEDS ORDERED: diphenhydrAMINE hydrochloride 50 MG/ML VIAL IV ONE (14:25)
[2023-11-05 14:29] LABS: ALKALINE PHOSPHATASE 145 U/L (46-116); BUN 9 mg/dl (9-23); CHLORIDE 106 mmol/L (98-107); SGPT/ALT 19 U/L (5-49); TOTAL PROTEIN 7.9 gm/dL (6.0-8.0)
[2023-11-05] MEDS ORDERED: SODIUM CHLORIDE 0.9% 500 ML IV ONE (14:30)
[2023-11-05] MEDS ORDERED: SODIUM CHLORIDE 0.9% 1,000 ML IV ONE (14:30)
[2023-11-05] MEDS ORDERED: ONDANSETRON4 MG SL (16:23)
[2023-11-05] MEDS ORDERED: ANTIVERT25 M2 PO (16:23)
== END 2023-11-05 16:28 | disposition home or self-care (01) ==
LOC: ED 13:32
PROVIDERS: Nurse Practitioner
DX: R42 Dizziness and giddiness (principal); R11.0 Nausea; F17.200 Nicotine dependence, unspecified, uncomplicated; Z88.1 Allergy status to other antibiotic agents; Z88.6 Allergy status to analgesic agent; Z88.8 Allergy status to other drugs, medicaments and biological substances; Z79.2 Long term (current) use of antibiotics; Z79.899 Other long term (current) drug therapy; Z98.890 Other specified postprocedural states; Z90.49 Acquired absence of other specified parts of digestive tract; Z90.711 Acquired absence of uterus with remaining cervical stump; Z98.51 Tubal ligation status

== ENCOUNTER → 2024-05-02 | Outpatient (CLI) | payer OTHER ==
[~2024-05-02] MED LIST changes: +ANTIVERT25 M2 PO; +BARIUM SULFATE 60% 355 ML BOT PO ONE; +BARIUM SULFATE 98% 340 GM BOT PO ONE; +BARIUM SULFATE TABLET 700 MG PO ONE; +ONDANSETRON4 MG SL; +SODIUM BICARBONATE 4 GM PACK PO ONE
== END | disposition home or self-care (01) ==
LOC: RAD 04-26 08:00
PROVIDERS: ATTEND Family Medicine
DX: K21.9 Gastro-esophageal reflux disease without esophagitis (principal); K44.9 Diaphragmatic hernia without obstruction or gangrene

== ENCOUNTER 2024-05-07 19:43 | Emergency (ER) | payer OTHER ==
[~2024-05-07] VITALS: Ht 162.5 cm; Wt 99.8 kg
[~2024-05-07 19:43] MED LIST changes: -BARIUM SULFATE 60% 355 ML BOT PO ONE; -BARIUM SULFATE 98% 340 GM BOT PO ONE; -BARIUM SULFATE TABLET 700 MG PO ONE; -SODIUM BICARBONATE 4 GM PACK PO ONE
[2024-05-07 19:54] VITALS: BP 170/84
[2024-05-07] MEDS ORDERED: Tetracaine Hydrochloride 0.5% 4 ML BOT OPH ONE (20:20)
[2024-05-07] MEDS ORDERED: FLUORESCEIN SODIUM 1 MG STRIP OPH ONE (20:30)
== END 2024-05-07 21:53 | disposition home or self-care (01) ==
LOC: ED 19:43
DX: H43.391 Other vitreous opacities, right eye (principal); J44.9 Chronic obstructive pulmonary disease, unspecified; E11.65 Type 2 diabetes mellitus with hyperglycemia; F31.9 Bipolar disorder, unspecified; M79.7 Fibromyalgia; E78.5 Hyperlipidemia, unspecified; F17.200 Nicotine dependence, unspecified, uncomplicated; M19.90 Unspecified osteoarthritis, unspecified site; F41.9 Anxiety disorder, unspecified; Z87.442 Personal history of urinary calculi; Z90.49 Acquired absence of other specified parts of digestive tract; Z90.710 Acquired absence of both cervix and uterus; Z98.51 Tubal ligation status; Z98.890 Other specified postprocedural states

== ENCOUNTER 2024-06-05 17:14 | Emergency (ER) | payer OTHER | END 2024-06-05 19:27 | disposition left against medical advice (07) | LOC: ED 17:14 | DX: Z00.00 Encounter for general adult medical examination without abnormal findings (principal); Z88.6 Allergy status to analgesic agent; Z88.1 Allergy status to other antibiotic agents; Z88.8 Allergy status to other drugs, medicaments and biological substances; Z53.21 Procedure and treatment not carried out due to patient leaving prior to being seen by health care provider ==

== ENCOUNTER → 2024-06-05 | Outpatient (CLI) | payer OTHER ==
[2024-06-05 10:19] LABS: HEMATOCRIT 48.8 % (37.0-47.0); MEAN CELL VOLUME 83.1 fl (81.0-99.0); MEAN CORPUSCULAR HGB 27.9 pg (27.0-31.0); MEAN CORPUSCULAR HGB CONC 33.6 g/dl (33.0-37.0); MEAN PLATELET VOLUME 9.6 fl (9.6-12.3); RED BLOOD COUNT 5.87 10*6/uL (4.10-5.10); RED CELL DISTRI WIDTH 15.2 % (0-14.5)
[2024-06-05 10:50] LABS: ALKALINE PHOSPHATASE 180 U/L (46-116); BUN 9 mg/dl (9-23); CHLORIDE 104 mmol/L (98-107); POTASSIUM 4.2 mmol/L (3.4-5.1); SGPT/ALT 35 U/L (5-49); TOTAL PROTEIN 8.3 gm/dL (6.0-8.0)
== END | disposition home or self-care (01) ==
LOC: LAB 09:57
PROVIDERS: ATTEND Family Medicine
DX: N39.0 Urinary tract infection, site not specified (principal); R19.7 Diarrhea, unspecified; R25.2 Cramp and spasm

== ENCOUNTER 2024-09-18 20:29 | Inpatient (IN) | payer OTHER ==
[~2024-09-18] VITALS: Ht 167.6 cm; Wt 113.4 kg
[2024-09-18 20:33] VITALS: BP 120/77
[2024-09-18] MEDS ORDERED: Ondansetron Hydrochloride 4 MG/2 ML VIAL IV ONE (20:40)
[2024-09-18] MEDS ORDERED: ZANAFLEX4 M1 PO (20:47)
[2024-09-18] MEDS ORDERED: GOOD SENSE ACID20 MG PO (20:47)
[2024-09-18] MEDS ORDERED: PERCOCET 10-321 EACH PO (20:49)
[2024-09-18 21:09] LABS: BASO % 0.3 % (0.0-1.0); EOS % 0.4 % (1.0-4.0); HEMATOCRIT 47.5 % (37.0-47.0); MEAN CELL VOLUME 83.9 fl (81.0-99.0); MEAN CORPUSCULAR HGB 27.6 pg (27.0-31.0); MEAN CORPUSCULAR HGB CONC 32.8 g/dl (33.0-37.0); MEAN PLATELET VOLUME 9.3 fl (9.6-12.3); MONO # 0.7 10*3/uL (0.1-1.0); MONO % 6.2 % (3.0-9.0); NEUT # 6.9 10*3/uL (2.3-7.9); NEUT % 64.7 % (47.0-73.0); PLATELET COUNT AUTOMATED 382 10*3/uL (130-400); RED BLOOD COUNT 5.66 10*6/uL (4.10-5.10); RED CELL DISTRI WIDTH 15.1 % (0-14.5); WHITE BLOOD COUNT 10.6 10*3/uL (4.8-10.8)
[2024-09-18 21:33] LABS: ALKALINE PHOSPHATASE 166 U/L (46-116); BUN 14 mg/dl (9-23); CHLORIDE 105 mmol/L (98-107); POTASSIUM 3.9 mmol/L (3.4-5.1); SGPT/ALT 27 U/L (5-49)
[2024-09-18] MEDS ORDERED: MORPHINE Sulfate 2 MG/ML SYR IV ONE (21:35)
[2024-09-18 22:49] LABS: BILIRUBIN Negative (Negative); BLOOD 1+ (Negative); CLARITY Clear (Clear); COLOR Dark Yellow (Yellow); GLUCOSE Negative (Negative); KETONE Negative (Negative); LEUKO ESTERASE 2+ (Negative); NITRITE Positive (Negative); SPECIFIC GRAVITY 1.015 (1.001-1.030)
[2024-09-18 23:01] LABS: BACTERIA 4+; WBC 41-50 wbc/hpf (0-5)
[2024-09-18 23:45] VITALS: BP 118/68
[2024-09-19] MEDS ORDERED: Acetaminophen/Oxycodone 5 MG/325 MG TABLET PO PRN (01:55)
[2024-09-19 03:36] VITALS: BP 128/67
[2024-09-19] MEDS ORDERED: tiZANidine Hydrochloride 4 MG TAB PO SCH (06:00)
== END 2024-09-19 04:17 | disposition left against medical advice (07) | DRG 812 ==
LOC: ED 20:29 → EDHOLD 09-19 00:12
PROVIDERS: Emergency Medicine; ADMIT Internal Medicine; ATTEND Internal Medicine
DX: T80.89XA Other complications following infusion, transfusion and therapeutic injection, initial encounter (principal); J44.1 Chronic obstructive pulmonary disease with (acute) exacerbation; F31.9 Bipolar disorder, unspecified; K57.90 Diverticulosis of intestine, part unspecified, without perforation or abscess without bleeding; M79.7 Fibromyalgia; F41.1 Generalized anxiety disorder; K31.84 Gastroparesis; E78.5 Hyperlipidemia, unspecified; E66.01 Morbid (severe) obesity due to excess calories; R73.9 Hyperglycemia, unspecified; M06.9 Rheumatoid arthritis, unspecified; F17.210 Nicotine dependence, cigarettes, uncomplicated; Z53.29 Procedure and treatment not carried out because of patient's decision for other reasons; Z88.8 Allergy status to other drugs, medicaments and biological substances; Z90.49 Acquired absence of other specified parts of digestive tract; Z90.710 Acquired absence of both cervix and uterus; Z98.51 Tubal ligation status; Z83.6 Family history of other diseases of the respiratory system; Z81.8 Family history of other mental and behavioral disorders; Z83.3 Family history of diabetes mellitus; X58.XXXA Exposure to other specified factors, initial encounter; Y93.89 Activity, other specified; Y92.89 Other specified places as the place of occurrence of the external cause; Y99.8 Other external cause status

== ENCOUNTER → 2024-09-22 | Outpatient (CLI) | payer OTHER ==
[~2024-09-22] MED LIST changes: +GOOD SENSE ACID20 MG PO; +PERCOCET 10-321 EACH PO; +ZANAFLEX4 M1 PO
== END | disposition home or self-care (01) ==
LOC: RAD 10:37
PROVIDERS: ATTEND Family Medicine
DX: S99.812A Other specified injuries of left ankle, initial encounter (principal); M19.072 Primary osteoarthritis, left ankle and foot; M77.32 Calcaneal spur, left foot; M79.89 Other specified soft tissue disorders; X58.XXXA Exposure to other specified factors, initial encounter; Y93.89 Activity, other specified; Y92.89 Other specified places as the place of occurrence of the external cause; Y99.8 Other external cause status

== ENCOUNTER → 2024-10-23 | Outpatient (CLI) | payer OTHER | END | disposition home or self-care (01) | LOC: RAD 09:13 | PROVIDERS: ATTEND Family Medicine | DX: S99.912A Unspecified injury of left ankle, initial encounter (principal); M25.572 Pain in left ankle and joints of left foot; M47.812 Spondylosis without myelopathy or radiculopathy, cervical region; M50.321 Other cervical disc degeneration at C4-C5 level; M50.322 Other cervical disc degeneration at C5-C6 level; M48.02 Spinal stenosis, cervical region; M79.89 Other specified soft tissue disorders; M19.072 Primary osteoarthritis, left ankle and foot; X58.XXXA Exposure to other specified factors, initial encounter; Y93.89 Activity, other specified; Y92.89 Other specified places as the place of occurrence of the external cause; Y99.8 Other external cause status ==

== ENCOUNTER → 2024-11-24 | Outpatient (CLI) | payer OTHER | END | disposition home or self-care (01) | LOC: US 12:49 | PROVIDERS: ATTEND Family Medicine | DX: E04.2 Nontoxic multinodular goiter (principal) ==

== ENCOUNTER → 2025-05-18 | Outpatient (CLI) | payer OTHER ==
[2025-05-18 10:51] LABS: MEAN CELL VOLUME 98.9 fl (81.0-99.0); MEAN CORPUSCULAR HGB 32.3 pg (27.0-31.0); MEAN PLATELET VOLUME 8.9 fl (9.6-12.3); NUCLEATED RED BLOOD CELL 0.0 % (0.0-0.0); NUCLEATED RED BLOOD CELL 0.0 10*3/uL (0.0-0.0); PLATELET COUNT AUTOMATED 321 10*3/uL (130-400); RED CELL DISTRI WIDTH 18.2 % (0-14.5)
[2025-05-18 10:54] LABS: MANUAL DIFF REFLEX YES
[2025-05-18 11:23] LABS: PLATELET SUFFICIENCY NORMAL (NORMAL)
[2025-05-18 11:26] LABS: BUN 28 mg/dl (9-23); FREE T4 0.95 ng/dl (0.89-1.76); LDH 233 U/L (120-246); SGPT/ALT 54 U/L (5-49); THYROXINE (T4) TOTAL 4.6 ug/dl (4.5-10.9)
== END | disposition home or self-care (01) ==
LOC: LAB 10:17
PROVIDERS: ATTEND Internal Medicine Medical Oncology
DX: S12.000A Unspecified displaced fracture of first cervical vertebra, initial encounter for closed fracture (principal); C34.90 Malignant neoplasm of unspecified part of unspecified bronchus or lung; T50.995A Adverse effect of other drugs, medicaments and biological substances, initial encounter; C79.51 Secondary malignant neoplasm of bone; E04.1 Nontoxic single thyroid nodule; J98.4 Other disorders of lung; M54.2 Cervicalgia; X58.XXXA Exposure to other specified factors, initial encounter; Y93.89 Activity, other specified; Y92.89 Other specified places as the place of occurrence of the external cause; Y99.8 Other external cause status

== ENCOUNTER → 2025-06-12 | Outpatient (CLI) | payer OTHER ==
[2025-06-12 13:48] LABS: MEAN CELL VOLUME 95.2 fl (81.0-99.0); MEAN CORPUSCULAR HGB 31.3 pg (27.0-31.0); MEAN PLATELET VOLUME 9.4 fl (9.6-12.3); NUCLEATED RED BLOOD CELL 0.0 % (0.0-0.0); NUCLEATED RED BLOOD CELL 0.0 10*3/uL (0.0-0.0); PLATELET COUNT AUTOMATED 218.0 10*3/uL (130-400); RED CELL DISTRI WIDTH 12.7 % (0-14.5)
[2025-06-12 14:32] LABS: BUN 16 mg/dl (9-23); CPK 143 U/L (34-171); LDL CHOLESTEROL 142 mg/dL (9-159); SGPT/ALT 72 U/L (5-49)
[2025-06-12 14:37] LABS: VITAMIN D, 25-HYDROXY 8.9 ng/mL (30-100)
== END | disposition home or self-care (01) ==
LOC: LAB 12:39
PROVIDERS: ATTEND Family Medicine
DX: J98.11 Atelectasis (principal); R05.9 Cough, unspecified; E55.9 Vitamin D deficiency, unspecified; K21.9 Gastro-esophageal reflux disease without esophagitis; C73 Malignant neoplasm of thyroid gland

== ENCOUNTER 2025-06-15 19:50 | Emergency (ER) | payer OTHER | END 2025-06-15 20:48 | LOC: ED 19:50 | DX: R05.9 Cough, unspecified (principal); R09.3 Abnormal sputum; Z53.21 Procedure and treatment not carried out due to patient leaving prior to being seen by health care provider ==